=== PATIENT | female | born 1950 | race Caucasian/White ===

== ENCOUNTER 2023-12-09 13:12 | Emergency (ER) | payer MEDICARE, OTHER, SELFPAY ==
[2023-12-09 13:26] VITALS: BP 140/71
[2023-12-09 13:44] LABS: % Basophils 0.3 % (0-2); % Eosinophils 1.1 % (0-6); % Immature Granulocytes 0.3 % (0-0.5); % Lymphocytes 12.9 % (20.5-51.1); % Monocytes 6.6 % (1.7-9.3); % Neutrophils 78.8 % (42.2-75.2); Absolute Eosinophils 0.1 10^3/uL (0-0.7); Absolute Lymphocytes 0.9 10^3/uL (1.2-3.4); Absolute Monocytes 0.5 10^3/uL (0.1-0.6); Absolute Neutrophils 5.5 10^3/uL (1.4-6.5); Hematocrit 37.5 % (37.0-47.0); Hemoglobin 12.3 g/dL (12.0-16.0); Mean Corp Hgb Conc. 32.8 g/dL (33.0-37.0); Mean Corpuscular Hgb 30.7 pg (27.0-31.0); Mean Corpuscular Volume 93.5 fL (81.0-99.0); Nucleated Red Blood Cells % 0 %; Platelet Count 226 10^3/uL (130-400); Red Blood Cell Count 4.01 10^6/uL (4.20-5.40); Red Cell Dist. Width 15.1 % (11.5-14.5)
[2023-12-09 14:00] LABS: ALT (SGPT) 18 U/L (0-35); AST (SGOT) 24 U/L (14-36); Albumin 4.1 g/dl (3.5-5.0); Alkaline Phosphatase 85 U/L (38-126); Blood Urea Nitrogen 13 mg/dl (7-17); Carbon Dioxide 27 mmol/L (22-30); Chloride 103 mmol/L (98-107); Glucose 98 mg/dl (70-99); Sodium 134 mmol/L (135-145); Total Bilirubin 0.6 mg/dl (0.2-1.3); Total Protein 6.1 g/dl (6.3-8.2); eGFR > 60.00
--- NOTE | 2023-12-09 14:04 | ED.GENMED ---
History of Present Illness
<Skyla Patel PA-C - Last Filed: 12/09/23 18:31>
General
Chief Complaint: Jaw Pain
Source: patient
Exam Limitations: none
Time Seen by Provider: 12/09/23 14:02
Nursing documentation reviewed up to this point in time: agreed with
Travel History
Have you had any contact with someone who has COVID-19?: No
Do you have any symptoms of coronavirus? Fever > 100 degrees, chills, cough, shortness of breath, sore throat, loss of taste or smell, muscle aches, or headache?: No
History of Present Illness
History of Present Illness:
This is 73-year-old female with past medical history of myelodysplasia, hyperlipidemia, thyroidism is presenting today with jaw pain. She states that this started when she woke up this morning. She states that the pain is intermittent and is not
aggravated by range of motion of the jaw. She did take Tylenol this morning which did not help the pain. She did see her dentist this past week for regular checkup and she said that everything was normal. She does admit to some occasional
shortness of breath but this she states is chronic for her. She currently denies chest pain, nausea or vomiting, ear pain, headaches, changes to her vision, fevers or chills, lightheadedness, dizziness, shoulder pain. She denies facial pain, tooth
pain. Denies head trauma, trauma to the jaw. She denies radiation of the pain. She is never had anything like this before. She has no history of ACS, coronary artery disease.
Past History
<Skyla Patel PA-C - Last Filed: 12/09/23 18:31>
Past History
ED Past Medical History: Hypercholesterolemia, Hypothyroidism (Thyroidectomy) and Other (Bone marrow transplant for myelodysplasia in 12/2019, Migraine, Rheumatic fever, )
ED Past Surgical History: Other (Thyroidectomy, Hernia repair, MOH's, Eye lid lift)
Social History
Tobacco: Former smoker
Alcohol: None
Personal: Single
Living: alone ([place])
Review of Systems
<Skyla Patel PA-C - Last Filed: 12/09/23 18:31>
Review of Systems
All Other Systems: ROS reviewed and negative except as documented in HPI and ROS
Phy Exam
<Skyla Patel PA-C - Last Filed: 12/09/23 18:31>
Physical Exam
Physical Exam:
General: Patient is well-appearing in no acute distress
Skin: warm and dry, no rashes or lesions
HEENT: No intraoral lesions, no periodontal no peridontal abscesses or swelling. Patient has full range of motion of TMJ joint, no tenderness to palpation of the joint.
Cardiac: Regular and rhythm, no murmurs
Pulm: normal respiratory effort, lung sounds are clear to auscultation bilaterally
Neuro: Alert and oriented x 3, cranial nerves II through XII intact.
Scores
<Skyla Patel PA-C - Last Filed: 12/09/23 18:31>
Heart Score for Chest Pain Patients
Heart Score for Chest Pain Patients: 3
Heart Score Risk: 2.5% MACE over next 6 weeks
<Nirav Dyer DO - Last Filed: 12/09/23 16:04>
Heart Score for Chest Pain Patients
STEMI patient?: No
History: Slightly or Non-Suspicious
ECG: Normal
Age: >/= 65 years
Risk Factors: 1 or 2 Risk Factors
Troponin: </= Normal Limit
Heart Score for Chest Pain Patients: 3
Heart Score Risk: 2.5% MACE over next 6 weeks
Course
<Skyla Patel PA-C - Last Filed: 12/09/23 18:31>
Orders/Labs/Results
Orders:
Orders
12/09/23 13:27
Electrocardiogram (*1) Urgent
Reason for Study: Chest Pain
EKG- Treatment ONCE
12/09/23 13:33
Complete Blood Count/With Diff Urgent
Comprehensive Metabolic Panel Urgent
Troponin I Urgent
12/09/23 15:48
Troponin I Urgent
12/09/23 16:30
Electrocardiogram (*1) Urgent
Reason for Study: QTc Monitoring
Abnormal Lab Results
12/09/23
13:33
RBC 4.01 L 10^6/uL
(4.20-5.40)
MCHC 32.8 L g/dL
(33.0-37.0)
RDW 15.1 H %
(11.5-14.5)
Absolute Lymphs (auto) 0.9 L 10^3/uL
(1.2-3.4)
Neutrophils % 78.8 H %
(42.2-75.2)
Lymphocytes % 12.9 L %
(20.5-51.1)
Sodium 134 L mmol/L
(135-145)
Creatinine 0.5 L mg/dL
(0.6-1.0)
Total Protein 6.1 L g/dl
(6.3-8.2)
12/09/23 13:33
12/09/23 13:33
Vital Signs
Initial and Last Documented VS:
Initial Vital Signs
Temp Pulse Resp BP Pulse Ox
98.4 F 81 16 140/71 98
12/09/23 13:26 12/09/23 13:26 12/09/23 13:26 12/09/23 13:26 12/09/23 13:26
Last Documented Vital Signs
Temp Pulse Resp BP Pulse Ox
98.5 F 94 16 135/79 99
12/09/23 14:09 12/09/23 14:09 12/09/23 14:09 12/09/23 14:09 12/09/23 14:09
<Nirav Dyer, DO - Last Filed: 12/09/23 16:04>
Orders/Labs/Results
Orders:
Orders
12/09/23 13:27
Electrocardiogram (*1) Urgent
Reason for Study: Chest Pain
EKG- Treatment ONCE
12/09/23 13:33
Complete Blood Count/With Diff Urgent
Comprehensive Metabolic Panel Urgent
Troponin I Urgent
12/09/23 15:48
Troponin I Urgent
12/09/23 16:30
Electrocardiogram (*1) Urgent
Reason for Study: QTc Monitoring
Abnormal Lab Results
12/09/23
13:33
RBC 4.01 L 10^6/uL
(4.20-5.40)
MCHC 32.8 L g/dL
(33.0-37.0)
RDW 15.1 H %
(11.5-14.5)
Absolute Lymphs (auto) 0.9 L 10^3/uL
(1.2-3.4)
Neutrophils % 78.8 H %
(42.2-75.2)
Lymphocytes % 12.9 L %
(20.5-51.1)
Sodium 134 L mmol/L
(135-145)
Creatinine 0.5 L mg/dL
(0.6-1.0)
Total Protein 6.1 L g/dl
(6.3-8.2)
12/09/23 13:33
12/09/23 13:33
Vital Signs
Initial and Last Documented VS:
Initial Vital Signs
Temp Pulse Resp BP Pulse Ox
98.4 F 81 16 140/71 98
12/09/23 13:26 12/09/23 13:26 12/09/23 13:26 12/09/23 13:26 12/09/23 13:26
Last Documented Vital Signs
Temp Pulse Resp BP Pulse Ox
98.5 F 94 16 135/79 99
12/09/23 14:09 12/09/23 14:09 12/09/23 14:09 12/09/23 14:09 12/09/23 14:09
<Skyla Patel PA-C - Last Filed: 12/09/23 18:31>
MDM/Problems Addressed
Differential Diagnosis Includes:
Differentials include ACS, TMJ syndrome, trigeminal neuralgia, temporal arteritis, peritonsillar disease
MDM/Problems Addressed:
Jaw pain
Chronic conditions affecting care:
Hypothyroidism, myelodysplasia, hyperlipidemia
Acute Exacerbation and/or Progression of Chronic Illness:
n/a
<Skyla Patel PA-C - Last Filed: 12/09/23 18:31>
*Pulse Oximetry
Patient hypoxic: no
*Critical Care Note
Total Time (30-74mins, 75-104mins- exclusive of procedures): Not Applicable
Data Reviewed
Review of Other/Old Records Reveals: Records (Reviewed previous records, patient was seen here back in October for weakness, she was hospitalized for 3 days, she was found to have hyponatremia possibly secondary to her medications,)
Prescriptions/Medications Considered But Not Given:
n/a
Further Testing Considered But Not Given:
n/a
<Skyla Patel PA-C - Last Filed: 12/09/23 18:31>
Patient Management
Escalation/DeEscalation of care consider admission/obs:
This is a 73-year-old female with a past medical history of myelodysplastic syndrome, hyperlipidemia, hypothyroidism is presenting to emergency department today with jaw pain. Is located on the left side and started around 8 AM upon awakening. She
has no other associate symptoms, no chest pain, no shortness of breath, no dizziness, no lightheadedness. Physical exam is unremarkable. She did not have jaw pain during my visit with her. Her troponin was normal and her EKG showed normal sinus
rhythm. Her CBC and CMP were unremarkable. Her repeat troponin EKG was also normal. We will discharge patient with close follow-up with her PCP and advised return emergency department should she have worsening of her symptoms, chest pain,
shortness of breath, shoulder pain, tractable vomiting, dizziness, or other concerning symptoms
ED Attending Note
<Skyla Patel PA-C - Last Filed: 12/09/23 18:31>
-
Portions of this chart may have been created with voice recognition software.� Occasional wrong word or��sound alike� substitutions may have occurred due to the inherent limitations of voice recognition software.
<Nirav Dyer DO - Last Filed: 12/09/23 16:04>
ED Attending Note
Patient seen and examined by attending physician: Yes
I performed the substantive portion of visit, reviewed & personally made and approve the management plan that is documented in note by myself or VIVIAN.: Yes
I performed a history and physical exam of patient and discussed management with resident, I reviewed resident's note and agree with documented findings and plan of care.: Yes
ED Attending Note:
I have reviewed and agree with history and treatment plan by Skyla Patel. EKG normal. No signs of infection or jaw dislocation. Initial troponin negative. Patient now pain-free. Doubt ACS. Will repeat troponin and EKG. If negative,
patient can be discharged home.
Discharge Plan
Departure
Patient Disposition: Home (Routine Discharge)
Date of Disposition: 12/09/23
Time of Disposition: 16:57
Patient with high blood pressure during this ER visit?: Yes
Condition: Good
Discharge Problem:
Jaw pain
Instructions: Temporomandibular joint (TMJ) disorders, Bruxism (DC), BLOOD PRESSURE
Prescriptions:
No Action
cyanocobalamin (vitamin B-12) 1,000 MCG tablet
500 mcg PO DAILY
valacyclovir 500 MG tablet
500 mg PO BID
sulfamethoxazole-trimethoprim [Bactrim DS] 800-160 mg Tablet
1 tab PO MOWEFR
magnesium gluconate 30 mg (550 mg) Tablet
133 mg PO DAILY
montelukast 10 MG tablet
10 mg PO DAILY
fluticasone propionate 1 SPRAY spray,suspension
2 spray intranasal DAILYPRN PRN (Reason: ALLERGIES)
senna 8.6 MG capsule
8.6 mg PO BID
cholecalciferol (vitamin D3) [Vitamin D3] 25 mcg (1,000 unit) Tablet
25 mcg PO BID
PreserVision AREDS-2 1 EACH capsule
1 ea PO BID
Milk Digestant
2 tab PO DAILY
levothyroxine [Synthroid] 175 mcg Tablet
175 mcg PO MOTUWETHFRSA
acetaminophen [Tylenol] 325 mg Tablet
650 mg PO Q4HPRN PRN (Reason: MILD PAIN)
simethicone [Gas-X Extra Strength] 125 mg Capsule
250 mg PO BID
fexofenadine 180 mg Tablet
180 mg PO DAILY
lorazepam 0.5 mg Tablet
0.25 mg PO DAILY
karthikeyan extract 250 mg Capsule
100 mg PO DAILY
calcium carbonate-vitamin D3 [Calcium 600 + D(3)] 600 mg-10 mcg (400 unit) Tablet
2 tab PO DAILY
meclizine 25 mg Tablet
25 mg PO TIDPRN PRN (Reason: dizziness) Qty: 20 0RF
Referrals:
Pranav Sanchez MD [Family Provider] -
Activity Restrictions/Additional Instructions:
Please follow-up with your primary care provider.
Please use Tylenol as needed for pain control.
Please return to the emergency department should you experience worsening of your symptoms, chest pain, shortness of breath, shoulder pain, back pain, intractable vomiting, dizziness, lightheadedness, or other concerning symptoms.
Interventions
Interventions:
*Risk Screen - Suicide Last Done: 12/09/23 14:06
*General Assessment Last Done: 12/09/23 14:06
*Neglect/Abuse Screening Last Done: 12/09/23 14:06
ED- Fall Risk Assessment Last Done: 12/09/23 14:06
*ED COVID-19 Vaccine History Last Done: 12/09/23 14:06
*Nursing Disposition Last Done: 12/09/23 16:59
ED-EENT Assessment Last Done: 12/09/23 14:06
ED- Cardiac Assessment Last Done: 12/09/23 14:06
Discharge Date and Time
Discharge Date/Time: 12/09/23 17:00
[2023-12-09 14:06] VITALS: BMI 22.9
[2023-12-09 14:09] VITALS: BP 135/79
[2023-12-09 14:10] LABS: Troponin I < 0.012 ng/ml
--- NOTE | 2023-12-09 14:44 | EDRN ---
the pt was placed on portable site monitor in [address], the pt is NSR in the 80's, no c/o chest pain or jaw pain currently, Sp02 100%, no c/o SOB, will continue to monitor the pt closely
[2023-12-09 16:27] LABS: Troponin I < 0.012 ng/ml
== END 2023-12-09 17:00 | disposition home or self-care (01) ==
LOC: EMR 13:12
PROVIDERS: Emergency Medicine; Physician Assistant; EMERGENCY PHYSICIAN Emergency Medicine; FAMILY PHYSICIAN Internal Medicine Geriatric Medicine
DX: R68.84 Jaw pain (principal); Z87.891 Personal history of nicotine dependence; R03.0 Elevated blood-pressure reading, without diagnosis of hypertension; E03.9 Hypothyroidism, unspecified; E78.00 Pure hypercholesterolemia, unspecified; D46.9 Myelodysplastic syndrome, unspecified
CPT/HCPCS: 99284; 80053; 84484; 85025; 93005

== ENCOUNTER → 2023-12-20 07:29 | Outpatient (REF) | payer MEDICARE, OTHER, SELFPAY | LOC: EMG 07:29 | PROVIDERS: ATTENDING PHYSICIAN Psychiatry & Neurology Neurology; FAMILY PHYSICIAN Internal Medicine Geriatric Medicine | DX: R20.0 Anesthesia of skin (principal); G62.0 Drug-induced polyneuropathy | CPT/HCPCS: 95886; 95913 ==

== ENCOUNTER 2024-01-11 13:47 | Outpatient (RCR) | payer MEDICARE, OTHER, SELFPAY | END 2024-01-11 23:59 | disposition home or self-care (01) | LOC: ROT 13:47 | PROVIDERS: ATTENDING PHYSICIAN Psychiatry & Neurology Neurology; FAMILY PHYSICIAN Internal Medicine Geriatric Medicine | DX: R41.89 Other symptoms and signs involving cognitive functions and awareness (principal); Z73.6 Limitation of activities due to disability | CPT/HCPCS: 96125; 97129; 97130; 97167; 97530; 97535 ==

== ENCOUNTER 2024-01-26 15:03 | Outpatient (RCR) | payer MEDICARE, OTHER, SELFPAY | END 2024-01-26 23:59 | disposition home or self-care (01) | LOC: ROT 15:03 | PROVIDERS: ATTENDING PHYSICIAN Psychiatry & Neurology Neurology; FAMILY PHYSICIAN Internal Medicine Geriatric Medicine | DX: R41.89 Other symptoms and signs involving cognitive functions and awareness (principal); Z73.6 Limitation of activities due to disability | CPT/HCPCS: 97110; 97129; 97130; 97530; 97535 ==

== ENCOUNTER 2024-02-02 18:10 | Emergency (ER) | payer MEDICARE, OTHER, SELFPAY ==
[2024-02-02 18:13] VITALS: BP 148/73; BMI 23.7
[2024-02-02 18:26] LABS: % Basophils 0.3 % (0-2); % Eosinophils 2.3 % (0-6); % Immature Granulocytes 0.2 % (0-0.5); % Lymphocytes 22.4 % (20.5-51.1); % Monocytes 8.4 % (1.7-9.3); % Neutrophils 66.4 % (42.2-75.2); Absolute Eosinophils 0.2 10^3/uL (0-0.7); Absolute Lymphocytes 1.5 10^3/uL (1.2-3.4); Absolute Monocytes 0.6 10^3/uL (0.1-0.6); Absolute Neutrophils 4.4 10^3/uL (1.4-6.5); Hematocrit 39.2 % (37.0-47.0); Hemoglobin 12.9 g/dL (12.0-16.0); Mean Corp Hgb Conc. 32.9 g/dL (33.0-37.0); Mean Corpuscular Hgb 30.3 pg (27.0-31.0); Mean Platelet Volume 8.7 fL (7.4-10.4); Nucleated Red Blood Cells % 0 %; Platelet Count 220 10^3/uL (130-400); Red Blood Cell Count 4.26 10^6/uL (4.20-5.40); Red Cell Dist. Width 15.9 % (11.5-14.5); White Blood Cell Count 6.6 10^3/uL (4.8-10.8)
[2024-02-02 18:42] LABS: ALT (SGPT) 18 U/L (0-35); AST (SGOT) 25 U/L (14-36); Albumin 4.6 g/dl (3.5-5.0); Alkaline Phosphatase 77 U/L (38-126); Blood Urea Nitrogen 16 mg/dl (7-17); Calcium 9.9 mg/dl (8.4-10.2); Carbon Dioxide 27 mmol/L (22-30); Chloride 101 mmol/L (98-107); Estimated Creatinine Clearance 76 ml/min; Glucose 114 mg/dl (70-99); Potassium 3.9 mmol/L (3.5-5.1); Sodium 137 mmol/L (135-145); Total Bilirubin 0.5 mg/dl (0.2-1.3); Total Protein 6.8 g/dl (6.3-8.2); eGFR > 60.00
--- NOTE | 2024-02-02 18:45 | ED.GENMED ---
History of Present Illness
General
Chief Complaint: Chest Pain
Time Seen by Provider: 02/02/24 18:17
Travel History
Have you had any contact with someone who has COVID-19?: No
Do you have any symptoms of coronavirus? Fever > 100 degrees, chills, cough, shortness of breath, sore throat, loss of taste or smell, muscle aches, or headache?: No
History of Present Illness
History of Present Illness:
HPI: At about 2 PM today, the patient had relatively abrupt onset pain underneath the left breast. She initially thought this was related to bra discomfort so she removed the bra and the symptoms resolved however symptoms later recurred. Since
that time she was having intermittent episodes. Overall the frequency has been decreasing and she currently has no pain over the last hour or so. She never had any shortness of breath. She is known to Dr. Ortiz. She is supposed to have a cardiac
monitor starting tomorrow.
EXAM:
GENERAL: Well appearing in no distress
HEENT: Moist oral mucosa
CARDIOVASCULAR: No murmurs, normal heart rate, regular rhythm, No chest wall tenderness
PULMONARY: No respiratory distress, breath sounds are clear and equal
ABDOMEN: Soft with no peritoneal signs, no tenderness
NEUROLOGIC: Excellent strength all extremities, no coordination deficits
PSYCHIATRIC: Appropriate mental status, normal insight and judgement
EXTREMITIES: Nontender, no edema, moves all extremities equally
SKIN: No rash, no lesions there is no evidence of shingles on the left side of the chest
TIME OF INITIAL ENCOUNTER: 6:40 PM
NUMBER AND COMPLEXITY OF PROBLEMS ADDRESSED AT THE ENCOUNTER
� Chronic conditions affecting care: Migraine, hypothyroidism, skin cancer
� Acute Exacerbation and/or Progression of Chronic Illness: This is an acute but recurring problem�has had similar but less severe episodes in the past
� Differential Diagnosis includes: Shingles, chest wall pain, stress/anxiety, ACS
AMOUNT AND/OR COMPLEXITY OF DATA TO BE REVIEWED AND ANALYZED
� I performed an independent evaluation of and my interpretation is:
EKG: Sinus 75, normal axis, QTc is normal, no acute ST abnormality
CT:
X-rays:
Laboratory Studies: CBC normal, chemistries unremarkable, troponin negative
Other:
� Review of other/old records: I reviewed OT notes from earlier this year�there for vestibular therapy
� Clinical information was obtained by an independent historian: I spoke to cousins at bedside
� Prescriptions/Medications Considered but not given:
� Further testing considered but not performed:
RISK OF COMPLICATIONS AND/OR MORBIDITY OR MORTALITY OF PATIENT MANAGEMENT
� Social determinants of health affecting care: Lives at [facility]
� Discussion with other providers:
� Escalation of care including admission/observation vs risk of discharge considered: The patient's pain has spontaneously resolved. EKG is unremarkable. The patient is known to Dr. HUGO [facility] chest pain hotline
follow-up. She has remained symptom-free since I saw her initially in the ED. No further symptoms on reassessment at 7 PM.
Past History
Past History
ED Past Medical History: Hypercholesterolemia, Hypothyroidism (Thyroidectomy) and Other (Bone marrow transplant for myelodysplasia in 12/2019, Migraine, Rheumatic fever, )
ED Past Surgical History: Other (Thyroidectomy, Hernia repair, MOH's, Eye lid lift)
Social History
Tobacco: Former smoker
Alcohol: None
Personal: Single
Living: alone ([facility])
Phy Exam
Physical Exam
Physical Exam:
See HPI
Scores
Heart Score for Chest Pain Patients
STEMI patient?: Not applicable
Course
Orders/Labs/Results
Orders:
Orders
02/02/24 18:12
Electrocardiogram (*1) Urgent
Reason for Study: Chest Pain
Cardiac Monitoring- Treatment ONCE
EKG- Treatment ONCE
IV Insert/Care/Rem.- Treatment PRN
O2 Therapy [RESP] Urgent
Titrate/Wean O2 to maintain O2 sat greater than (%): 90
Special Instructions: Maintain sats >/=90%
Pulse Ox/spot Check [RESP] Urgent
Quantity: 1
Special Instructions: ON ROOM AIR
02/02/24 18:15
Complete Blood Count/With Diff Urgent
Comprehensive Metabolic Panel Urgent
Troponin I Urgent
Abnormal Lab Results
02/02/24
18:15
MCHC 32.9 L g/dL
(33.0-37.0)
RDW 15.9 H %
(11.5-14.5)
Glucose 114 H mg/dl
(70-99)
02/02/24 18:15
02/02/24 18:15
Vital Signs
Initial and Last Documented VS:
Initial Vital Signs
Temp Pulse Resp BP Pulse Ox
97.8 F 79 16 148/73 99
02/02/24 18:13 02/02/24 18:13 02/02/24 18:13 02/02/24 18:13 02/02/24 18:13
Last Documented Vital Signs
Temp Pulse Resp BP Pulse Ox
97.8 F 79 16 148/73 99
02/02/24 18:13 02/02/24 18:13 02/02/24 18:13 02/02/24 18:13 02/02/24 18:13
*Critical Care Note
Total Time (30-74mins, 75-104mins- exclusive of procedures): Not Applicable
ED Attending Note
-
Portions of this chart may have been created with voice recognition software.� Occasional wrong word or��sound alike� substitutions may have occurred due to the inherent limitations of voice recognition software.
Discharge Plan
Departure
Patient Disposition: Home (Routine Discharge)
Date of Disposition: 02/02/24
Time of Disposition: 18:52
Patient with high blood pressure during this ER visit?: Yes
Discharge Problem:
Chest pain
Instructions: Chest Pain DCA Follow Up
Prescriptions:
No Action
cyanocobalamin (vitamin B-12) 1,000 MCG tablet
500 mcg PO DAILY
valacyclovir 500 MG tablet
500 mg PO BID
sulfamethoxazole-trimethoprim [Bactrim DS] 800-160 mg Tablet
1 tab PO MOWEFR
magnesium gluconate 30 mg (550 mg) Tablet
133 mg PO DAILY
montelukast 10 MG tablet
10 mg PO DAILY
fluticasone propionate 1 SPRAY spray,suspension
2 spray intranasal DAILYPRN PRN (Reason: ALLERGIES)
senna 8.6 MG capsule
8.6 mg PO BID
cholecalciferol (vitamin D3) [Vitamin D3] 25 mcg (1,000 unit) Tablet
25 mcg PO BID
PreserVision AREDS-2 1 EACH capsule
1 ea PO BID
Milk Digestant
2 tab PO DAILY
levothyroxine [Synthroid] 175 mcg Tablet
175 mcg PO MOTUWETHFRSA
acetaminophen [Tylenol] 325 mg Tablet
650 mg PO Q4HPRN PRN (Reason: MILD PAIN)
simethicone [Gas-X Extra Strength] 125 mg Capsule
250 mg PO BID
fexofenadine 180 mg Tablet
180 mg PO DAILY
lorazepam 0.5 mg Tablet
0.25 mg PO DAILY
karthikeyan extract 250 mg Capsule
100 mg PO DAILY
calcium carbonate-vitamin D3 [Calcium 600 + D(3)] 600 mg-10 mcg (400 unit) Tablet
2 tab PO DAILY
meclizine 25 mg Tablet
25 mg PO TIDPRN PRN (Reason: dizziness) Qty: 20 0RF
Referrals:
Brian Ortiz MD [Active] - Follow up in 2-3 days
Activity Restrictions/Additional Instructions:
I recommend that you follow-up with Dr. Otero have notified their office and they should be calling you to arrange close follow-up. Your EKG and cardiac blood work are normal. Return here if worse.
Interventions
Interventions:
*General Assessment Last Done: 02/02/24 18:13
*Neglect/Abuse Screening Last Done: 02/02/24 18:13
ED- Fall Risk Assessment Last Done: 02/02/24 18:41
*ED COVID-19 Vaccine History Last Done: 02/02/24 18:13
ED- Cardiac Assessment Last Done: 02/02/24 18:41
[2024-02-02 18:50] LABS: Troponin I < 0.012 ng/ml
== END 2024-02-02 19:33 | disposition home or self-care (01) ==
LOC: EMR 18:10
PROVIDERS: EMERGENCY PHYSICIAN Emergency Medicine; FAMILY PHYSICIAN Internal Medicine Geriatric Medicine
DX: R07.89 Other chest pain (principal); E78.00 Pure hypercholesterolemia, unspecified; E03.9 Hypothyroidism, unspecified; Z87.891 Personal history of nicotine dependence
CPT/HCPCS: 99283; 80053; 84484; 85025; 93005

== ENCOUNTER → 2024-02-15 08:02 | Outpatient (REF) | payer MEDICARE, OTHER, SELFPAY ==
[2024-02-15 09:19] LABS: % Basophils 0.3 % (0-2); % Eosinophils 3.3 % (0-6); % Immature Granulocytes 0.5 % (0-0.5); % Lymphocytes 18.4 % (20.5-51.1); % Monocytes 8.6 % (1.7-9.3); % Neutrophils 68.9 % (42.2-75.2); Absolute Eosinophils 0.2 10^3/uL (0-0.7); Absolute Lymphocytes 1.1 10^3/uL (1.2-3.4); Absolute Monocytes 0.5 10^3/uL (0.1-0.6); Hematocrit 38.6 % (37.0-47.0); Hemoglobin 12.4 g/dL (12.0-16.0); Mean Corp Hgb Conc. 32.1 g/dL (33.0-37.0); Mean Corpuscular Hgb 30.3 pg (27.0-31.0); Mean Corpuscular Volume 94.4 fL (81.0-99.0); Mean Platelet Volume 8.9 fL (7.4-10.4); Nucleated Red Blood Cells % 0 %; Platelet Count 196 10^3/uL (130-400); Red Blood Cell Count 4.09 10^6/uL (4.20-5.40); Red Cell Dist. Width 15.9 % (11.5-14.5); White Blood Cell Count 5.8 10^3/uL (4.8-10.8)
== END ==
LOC: REG 08:02
PROVIDERS: ATTENDING PHYSICIAN Internal Medicine Hematology & Oncology; FAMILY PHYSICIAN Internal Medicine Geriatric Medicine
DX: Z85.6 Personal history of leukemia (principal)
CPT/HCPCS: 36415; 85025

== ENCOUNTER → 2024-02-24 09:08 | Outpatient (REF) | payer MEDICARE, OTHER, SELFPAY ==
[2024-02-25 15:37] LABS: CD4 % of Cells Analyzed 17 % (35-68); CD4 Absolute Count 182 cells/uL (490-1600)
== END ==
LOC: REG 09:08
PROVIDERS: ATTENDING PHYSICIAN Nurse Practitioner Primary Care; FAMILY PHYSICIAN Internal Medicine Geriatric Medicine
DX: Z85.6 Personal history of leukemia (principal)
CPT/HCPCS: 36415; 86361

== ENCOUNTER → 2024-02-29 09:10 | Outpatient (REF) | payer MEDICARE, OTHER, SELFPAY | LOC: WDC 09:10 | PROVIDERS: ATTENDING PHYSICIAN Nurse Practitioner Adult Health; FAMILY PHYSICIAN Internal Medicine Geriatric Medicine | DX: N64.4 Mastodynia (principal) | CPT/HCPCS: 76642; 77062; 77066 ==

== ENCOUNTER → 2024-03-09 | Outpatient (REF) | payer MEDICARE, OTHER, SELFPAY | LOC: DHSLP | PROVIDERS: ATTENDING PHYSICIAN Internal Medicine; FAMILY PHYSICIAN Internal Medicine Geriatric Medicine | DX: G47.30 Sleep apnea, unspecified (principal); R06.83 Snoring | CPT/HCPCS: 95800 ==

== ENCOUNTER → 2024-05-30 10:55 | Outpatient (REF) | payer MEDICARE, OTHER, SELFPAY ==
[2024-05-30 14:21] LABS: % Basophils 0.2 % (0-2); % Eosinophils 2.8 % (0-6); % Immature Granulocytes 0.4 % (0-0.5); % Lymphocytes 18.2 % (20.5-51.1); % Monocytes 8.1 % (1.7-9.3); % Neutrophils 70.3 % (42.2-75.2); Absolute Eosinophils 0.2 10^3/uL (0-0.7); Absolute Monocytes 0.5 10^3/uL (0.1-0.6); Hematocrit 35.6 % (37.0-47.0); Mean Corp Hgb Conc. 33.7 g/dL (33.0-37.0); Mean Corpuscular Hgb 31.3 pg (27.0-31.0); Mean Corpuscular Volume 92.7 fL (81.0-99.0); Mean Platelet Volume 9.4 fL (7.4-10.4); Nucleated Red Blood Cells % 0 %; Platelet Count 173 10^3/uL (130-400); Red Blood Cell Count 3.84 10^6/uL (4.20-5.40); White Blood Cell Count 5.7 10^3/uL (4.8-10.8)
[2024-05-30 14:32] LABS: ALT (SGPT) 21 U/L (0-35); AST (SGOT) 24 U/L (14-36); Albumin 3.9 g/dl (3.5-5.0); Alkaline Phosphatase 73 U/L (38-126); Blood Urea Nitrogen 18 mg/dl (7-17); Calcium 9.4 mg/dl (8.4-10.2); Carbon Dioxide 27 mmol/L (22-30); Chloride 105 mmol/L (98-107); Glucose 78 mg/dl (70-99); HDL Cholesterol 49 mg/dl; LDL Cholesterol, Calculated 137 mg/dl; Sodium 138 mmol/L (135-145); Total Bilirubin 0.6 mg/dl (0.2-1.3); Total Cholesterol 212 mg/dl (50-199); Total Protein 5.9 g/dl (6.3-8.2); Triglyceride 132 mg/dl (10-149); Very Low Density Lipoprotein 26 mg/dl (0-30); eGFR > 60.00
[2024-05-30 14:48] LABS: Free T4 1.19 ng/dl (0.78-2.19); Vitamin D, 25-OH*** 51.5 ng/mL (30-80)
[2024-05-30 15:02] LABS: TSH 1.05 uIU/ml (0.47-4.68)
[2024-05-30 15:28] LABS: Erythrocyte Sed Rate 10 mm/hour (0-20)
== END ==
LOC: OLABPV 10:55
PROVIDERS: ATTENDING PHYSICIAN Internal Medicine Geriatric Medicine
DX: Z94.84 Stem cells transplant status (principal); J44.9 Chronic obstructive pulmonary disease, unspecified; E55.9 Vitamin D deficiency, unspecified; D46.9 Myelodysplastic syndrome, unspecified; E87.20 Acidosis, unspecified; G62.9 Polyneuropathy, unspecified; M25.562 Pain in left knee; E89.0 Postprocedural hypothyroidism; Z13.89 Encounter for screening for other disorder; K21.9 Gastro-esophageal reflux disease without esophagitis; T78.40XA Allergy, unspecified, initial encounter; R06.09 Other forms of dyspnea; I73.9 Peripheral vascular disease, unspecified; G45.9 Transient cerebral ischemic attack, unspecified; R68.84 Jaw pain; M54.9 Dorsalgia, unspecified; M54.50 Low back pain, unspecified; Z99.89 Dependence on other enabling machines and devices
CPT/HCPCS: 36415; 80053; 80061; 82306; 84439; 84443; 85025; 85652

== ENCOUNTER → 2024-06-13 16:09 | Outpatient (REF) | payer MEDICARE, OTHER, SELFPAY | LOC: REG 16:09 | PROVIDERS: ATTENDING PHYSICIAN Nurse Practitioner Family | DX: R19.7 Diarrhea, unspecified (principal); D46.9 Myelodysplastic syndrome, unspecified; R19.5 Other fecal abnormalities; K92.1 Melena | CPT/HCPCS: 87045; 87046; 87077; 87324; 87328; 87329; 87427; 87449 ==

== ENCOUNTER → 2024-06-29 10:22 | Outpatient (REF) | payer MEDICARE, OTHER, SELFPAY ==
[2024-06-29 11:44] LABS: % Basophils 0.7 % (0-2); % Immature Granulocytes 0.2 % (0-0.5); % Lymphocytes 21.4 % (20.5-51.1); % Monocytes 7.4 % (1.7-9.3); % Neutrophils 66.3 % (42.2-75.2); Absolute Eosinophils 0.2 10^3/uL (0-0.7); Absolute Lymphocytes 1.2 10^3/uL (1.2-3.4); Absolute Monocytes 0.4 10^3/uL (0.1-0.6); Absolute Neutrophils 3.8 10^3/uL (1.4-6.5); Hematocrit 38.8 % (37.0-47.0); Hemoglobin 12.9 g/dL (12.0-16.0); Mean Corp Hgb Conc. 33.2 g/dL (33.0-37.0); Mean Corpuscular Hgb 31.5 pg (27.0-31.0); Mean Corpuscular Volume 94.9 fL (81.0-99.0); Mean Platelet Volume 9.2 fL (7.4-10.4); Nucleated Red Blood Cells % 0 %; Platelet Count 173 10^3/uL (130-400); Red Blood Cell Count 4.09 10^6/uL (4.20-5.40); Red Cell Dist. Width 15.5 % (11.5-14.5); White Blood Cell Count 5.7 10^3/uL (4.8-10.8)
[2024-06-29 12:11] LABS: Blood Urea Nitrogen 18 mg/dl (7-17); Calcium 9.7 mg/dl (8.4-10.2); Carbon Dioxide 26 mmol/L (22-30); Chloride 103 mmol/L (98-107); Glucose 69 mg/dl (70-99); Potassium 4.3 mmol/L (3.5-5.1); Sodium 137 mmol/L (135-145); eGFR > 60.00
== END ==
LOC: REG 10:22
PROVIDERS: ATTENDING PHYSICIAN Orthopaedic Surgery; FAMILY PHYSICIAN Internal Medicine Geriatric Medicine
DX: Z01.818 Encounter for other preprocedural examination (principal)
CPT/HCPCS: 36415; 80048; 85025

== ENCOUNTER → 2024-08-15 11:30 | Outpatient (REF) | payer MEDICARE, OTHER, SELFPAY ==
[2024-08-15 13:39] LABS: % Basophils 0.7 % (0-2); % Eosinophils 5.3 % (0-6); % Immature Granulocytes 0.2 % (0-0.5); % Lymphocytes 17.3 % (20.5-51.1); % Monocytes 8.4 % (1.7-9.3); % Neutrophils 68.1 % (42.2-75.2); Absolute Eosinophils 0.2 10^3/uL (0-0.7); Absolute Lymphocytes 0.7 10^3/uL (1.2-3.4); Absolute Monocytes 0.4 10^3/uL (0.1-0.6); Absolute Neutrophils 2.8 10^3/uL (1.4-6.5); Hematocrit 30.4 % (37.0-47.0); Hemoglobin 9.9 g/dL (12.0-16.0); Mean Corp Hgb Conc. 32.6 g/dL (33.0-37.0); Mean Corpuscular Hgb 31.6 pg (27.0-31.0); Mean Corpuscular Volume 97.1 fL (81.0-99.0); Mean Platelet Volume 8.6 fL (7.4-10.4); Nucleated Red Blood Cells % 0 %; Platelet Count 229 10^3/uL (130-400); Red Blood Cell Count 3.13 10^6/uL (4.20-5.40); Red Cell Dist. Width 16.4 % (11.5-14.5); White Blood Cell Count 4.2 10^3/uL (4.8-10.8)
[2024-08-15 14:04] LABS: ALT (SGPT) 18 U/L (0-35); AST (SGOT) 22 U/L (14-36); Albumin 3.8 g/dl (3.5-5.0); Alkaline Phosphatase 102 U/L (38-126); Calcium 9.4 mg/dl (8.4-10.2); Carbon Dioxide 28 mmol/L (22-30); Chloride 103 mmol/L (98-107); Glucose 84 mg/dl (70-99); Potassium 4.2 mmol/L (3.5-5.1); Sodium 140 mmol/L (135-145); Total Protein 5.7 g/dl (6.3-8.2)
[2024-08-15 14:14] LABS: Blood Urea Nitrogen 14 mg/dl (7-17); Total Bilirubin 0.5 mg/dl (0.2-1.3); eGFR > 60.00
[2024-08-17 16:53] LABS: CD4 % of Cells Analyzed 20 % (35-68); CD4 Absolute Count 172 cells/uL (490-1600)
== END ==
LOC: OLABPV 11:30
PROVIDERS: ATTENDING PHYSICIAN Nurse Practitioner Primary Care
DX: Z85.6 Personal history of leukemia (principal)
CPT/HCPCS: 36415; 80053; 85025; 86361

== ENCOUNTER → 2024-08-18 07:58 | Outpatient (REF) | payer MEDICARE, OTHER, SELFPAY ==
[2024-08-18 08:48] LABS: % Basophils 0.6 % (0-2); % Eosinophils 4.8 % (0-6); % Immature Granulocytes 0.4 % (0-0.5); % Lymphocytes 18.5 % (20.5-51.1); % Monocytes 10.6 % (1.7-9.3); % Neutrophils 65.1 % (42.2-75.2); Absolute Eosinophils 0.3 10^3/uL (0-0.7); Absolute Monocytes 0.6 10^3/uL (0.1-0.6); Absolute Neutrophils 3.4 10^3/uL (1.4-6.5); Hematocrit 33.6 % (37.0-47.0); Hemoglobin 10.7 g/dL (12.0-16.0); Mean Corp Hgb Conc. 31.8 g/dL (33.0-37.0); Mean Corpuscular Hgb 31.5 pg (27.0-31.0); Mean Corpuscular Volume 98.8 fL (81.0-99.0); Mean Platelet Volume 8.5 fL (7.4-10.4); Nucleated Red Blood Cells % 0 %; Platelet Count 222 10^3/uL (130-400); Red Cell Dist. Width 16.4 % (11.5-14.5); Reticulocyte Count 3.1 % (0.4-2.8); White Blood Cell Count 5.2 10^3/uL (4.8-10.8)
[2024-08-18 09:09] LABS: Erythrocyte Sed Rate 17 mm/hour (0-20)
[2024-08-18 09:13] LABS: Iron 39 ug/dl (37-170); LDH 192 U/L (120-246); Phosphorus 3.6 mg/dl (2.5-4.5); Uric Acid 2.8 mg/dl (2.5-6.2)
[2024-08-18 09:21] LABS: Percent Saturation 12 % (20-50); Total Iron Binding Capacity 317 ug/dl (265-497)
[2024-08-18 10:21] LABS: Folate 5.7 ng/ml (2.76-20); Vitamin B12 > 1000 pg/ml (239-931)
[2024-08-19 14:13] LABS: CD4 % of Cells Analyzed 19 % (35-68); CD4 Absolute Count 219 cells/uL (490-1600)
[2024-08-19 23:27] LABS: Haptoglobin 163 mg/dL (30-200)
== END ==
LOC: REG 07:58
PROVIDERS: ATTENDING PHYSICIAN Nurse Practitioner Adult Health; FAMILY PHYSICIAN Internal Medicine Geriatric Medicine
DX: Z85.6 Personal history of leukemia (principal); E87.1 Hypo-osmolality and hyponatremia; D51.9 Vitamin B12 deficiency anemia, unspecified
CPT/HCPCS: 36415; 82607; 82728; 82746; 83010; 83540; 83550; 83615; 84100; 84550; 85025; 85045; 85652; 86361; 86880

== ENCOUNTER → 2024-09-12 11:15 | Outpatient (REF) | payer MEDICARE, OTHER, SELFPAY ==
[2024-09-12 12:14] LABS: % Basophils 0.7 % (0-2); % Eosinophils 4.3 % (0-6); % Immature Granulocytes 0.2 % (0-0.5); % Lymphocytes 20.9 % (20.5-51.1); % Monocytes 8.2 % (1.7-9.3); % Neutrophils 65.7 % (42.2-75.2); Absolute Eosinophils 0.2 10^3/uL (0-0.7); Absolute Lymphocytes 1.1 10^3/uL (1.2-3.4); Absolute Monocytes 0.4 10^3/uL (0.1-0.6); Absolute Neutrophils 3.5 10^3/uL (1.4-6.5); Hematocrit 34.7 % (37.0-47.0); Hemoglobin 11.1 g/dL (12.0-16.0); Mean Corpuscular Hgb 31.5 pg (27.0-31.0); Mean Corpuscular Volume 98.6 fL (81.0-99.0); Mean Platelet Volume 8.9 fL (7.4-10.4); Nucleated Red Blood Cells % 0 %; Platelet Count 203 10^3/uL (130-400); Red Blood Cell Count 3.52 10^6/uL (4.20-5.40); Red Cell Dist. Width 15.2 % (11.5-14.5); White Blood Cell Count 5.4 10^3/uL (4.8-10.8)
[2024-09-12 13:41] LABS: ALT (SGPT) 14 U/L (0-35); AST (SGOT) 23 U/L (14-36); Albumin 4.1 g/dl (3.5-5.0); Alkaline Phosphatase 81 U/L (38-126); Blood Urea Nitrogen 12 mg/dl (7-17); Calcium 9.6 mg/dl (8.4-10.2); Carbon Dioxide 29 mmol/L (22-30); Chloride 101 mmol/L (98-107); Glucose 80 mg/dl (70-99); HDL Cholesterol 40 mg/dl; LDL Cholesterol, Calculated 137 mg/dl; Potassium 4.5 mmol/L (3.5-5.1); Sodium 140 mmol/L (135-145); Total Bilirubin 0.4 mg/dl (0.2-1.3); Total Cholesterol 209 mg/dl (50-199); Total Protein 6.2 g/dl (6.3-8.2); Triglyceride 162 mg/dl (10-149); Very Low Density Lipoprotein 32 mg/dl (0-30); eGFR > 60.00
== END ==
LOC: OLABPV 11:15
PROVIDERS: ATTENDING PHYSICIAN Internal Medicine Geriatric Medicine
DX: E78.2 Mixed hyperlipidemia (principal); J44.9 Chronic obstructive pulmonary disease, unspecified; E55.9 Vitamin D deficiency, unspecified; D46.9 Myelodysplastic syndrome, unspecified; G62.9 Polyneuropathy, unspecified; M25.562 Pain in left knee; E89.0 Postprocedural hypothyroidism; K21.9 Gastro-esophageal reflux disease without esophagitis; T78.40XA Allergy, unspecified, initial encounter; Z13.89 Encounter for screening for other disorder; R06.09 Other forms of dyspnea; I73.9 Peripheral vascular disease, unspecified; G45.9 Transient cerebral ischemic attack, unspecified; M54.50 Low back pain, unspecified; Z99.89 Dependence on other enabling machines and devices
CPT/HCPCS: 36415; 80053; 80061; 85025

== ENCOUNTER → 2024-10-10 09:52 | Outpatient (REF) | payer MEDICARE, OTHER, SELFPAY ==
[2024-10-10 10:40] LABS: % Basophils 0.7 % (0-2); % Eosinophils 3.2 % (0-6); % Immature Granulocytes 0.2 % (0-0.5); % Lymphocytes 22.1 % (20.5-51.1); % Monocytes 8.3 % (1.7-9.3); % Neutrophils 65.5 % (42.2-75.2); Absolute Eosinophils 0.1 10^3/uL (0-0.7); Absolute Monocytes 0.4 10^3/uL (0.1-0.6); Absolute Neutrophils 2.9 10^3/uL (1.4-6.5); Hematocrit 34.3 % (37.0-47.0); Hemoglobin 11.3 g/dL (12.0-16.0); Mean Corp Hgb Conc. 32.9 g/dL (33.0-37.0); Mean Corpuscular Hgb 31.2 pg (27.0-31.0); Mean Corpuscular Volume 94.8 fL (81.0-99.0); Mean Platelet Volume 9.4 fL (7.4-10.4); Nucleated Red Blood Cells % 0 %; Platelet Count 179 10^3/uL (130-400); Red Blood Cell Count 3.62 10^6/uL (4.20-5.40); Red Cell Dist. Width 14.6 % (11.5-14.5); White Blood Cell Count 4.4 10^3/uL (4.8-10.8)
[2024-10-10 10:53] LABS: ALT (SGPT) 12 U/L (0-35); AST (SGOT) 21 U/L (14-36); Alkaline Phosphatase 60 U/L (38-126); Blood Urea Nitrogen 9 mg/dl (7-17); Calcium 9.4 mg/dl (8.4-10.2); Carbon Dioxide 28 mmol/L (22-30); Chloride 104 mmol/L (98-107); Glucose 84 mg/dl (70-99); HDL Cholesterol 36 mg/dl; LDL Cholesterol, Calculated 118 mg/dl; Potassium 4.2 mmol/L (3.5-5.1); Sodium 140 mmol/L (135-145); Total Bilirubin 0.4 mg/dl (0.2-1.3); Total Cholesterol 180 mg/dl (50-199); Triglyceride 131 mg/dl (10-149); Very Low Density Lipoprotein 26 mg/dl (0-30); eGFR > 60.00
[2024-10-10 10:55] LABS: C-Reactive Protein < 5.00 mg/L (0.0-10.00)
[2024-10-10 11:44] LABS: Erythrocyte Sed Rate 10 mm/hour (0-20)
[2024-10-10 12:14] LABS: Urine Albumin Negative (Neg - Trace); Urine Bilirubin Negative (Negative); Urine Character Clear (Clear); Urine Color Yellow; Urine Glucose Negative (Negative); Urine Ketone Negative (Negative); Urine Leukocyte Negative (Negative); Urine Nitrite Negative (Negative); Urine Occult Blood Negative (Negative); Urine Specific Gravity 1.005 (<1.030); Urine Urobilinogen Negative (Neg - 1+)
== END ==
LOC: OLABPV 09:52
PROVIDERS: ATTENDING PHYSICIAN Internal Medicine Geriatric Medicine
DX: E78.2 Mixed hyperlipidemia (principal); E55.9 Vitamin D deficiency, unspecified; R79.89 Other specified abnormal findings of blood chemistry
CPT/HCPCS: 36415; 80053; 80061; 81003; 85025; 85652; 86140

== ENCOUNTER → 2024-11-01 13:07 | Outpatient (REF) | payer MEDICARE, OTHER, SELFPAY | LOC: RAD 13:07 | PROVIDERS: ATTENDING PHYSICIAN Nurse Practitioner Family; FAMILY PHYSICIAN Internal Medicine Geriatric Medicine | DX: R06.02 Shortness of breath (principal); M54.50 Low back pain, unspecified; M25.551 Pain in right hip; M25.552 Pain in left hip | CPT/HCPCS: 72110; 73523 ==

== ENCOUNTER 2024-11-04 12:20 | Emergency (ER) | payer MEDICARE, OTHER, SELFPAY ==
[2024-11-04 12:21] VITALS: BP 140/80
[2024-11-04 13:32] VITALS: BP 140/59
[2024-11-04 14:00] VITALS: BP 123/65
--- NOTE | 2024-11-04 14:36 | ED.GENMED ---
History of Present Illness
General
Chief Complaint: Breast Problem
Source: patient
Exam Limitations: none
Time Seen by Provider: 11/04/24 14:36
Nursing documentation reviewed up to this point in time: agreed with
History of Present Illness
History of Present Illness:
74-year-old female with a past medical history of migraines, hypertension, hypothyroidism presents emergency department today with concerns of left-sided breast pain. She also feels it in her right breast at times as well. She states that it is
intermittent. She states that it will come and go randomly. She denies any trauma to the chest wall. She is never had a thing like this before. She denies any shortness of breath, states is different than chest pain. She denies any nipple
drainage, denies any fevers or chills, any recent long distance travel, any palpable breast masses. She does note a past surgical history of skin cancer and myelodysplasia.
Past History
Past History
ED Past Medical History: Hypercholesterolemia, Hypothyroidism (Thyroidectomy) and Other (Bone marrow transplant for myelodysplasia in 12/2019, Migraine, Rheumatic fever, )
ED Past Surgical History: Other (Thyroidectomy, Hernia repair, MOH's, Eye lid lift)
Social History
Tobacco: Former smoker
Alcohol: None
Personal: Single
Living: alone ([place])
Review of Systems
Review of Systems
All Other Systems: ROS reviewed and negative except as documented in HPI and ROS
Phy Exam
Physical Exam
Physical Exam:
General: Patient is well appearing and in no acute distress; non-toxic
Skin: Warm and dry, no rashes or lesions
Head: Normocephalic, atraumatic
Eyes: Sclera non-icteric. EOMs intact.
Cardiac: Regular rate and rhythm, no murmus
Breast: No lymphadenopathy or palpable breast masses bilaterally, no nipple drainage.
Pulm: Normal respiratory effort, no wheezes, rales, or rhonchi
Abdomen: No abdominal tenderness
Musculoskeletal: Tenderness to palpation of the external chest wall
Neuro: CN II-XII intact, no focal neurologic deficits.
Psychiatric: Appropriate mood and affect.
Course
Orders/Labs/Results
Orders:
Orders
11/04/24 12:25
Electrocardiogram (*1) Urgent
Reason for Study: Chest Pain
EKG- Treatment ONCE
11/04/24 14:56
CR Chest - 2 Views Urgent
Comment:
Reason For Exam: left chest wall pain
11/04/24 15:00
Complete Blood Count/With Diff Urgent
Comprehensive Metabolic Panel Urgent
D-Dimer Urgent
Troponin I Urgent
Abnormal Lab Results
11/04/24
15:00
RBC 4.09 L 10^6/uL
(4.20-5.40)
MCHC 32.0 L g/dL
(33.0-37.0)
RDW 15.0 H %
(11.5-14.5)
D-Dimer 0.55 H ug/mlFEU
(0.00-0.50)
11/04/24 15:00
11/04/24 15:00
Vital Signs
Initial and Last Documented VS:
Initial Vital Signs
Temp Pulse Resp BP Pulse Ox
98.4 F 98 16 140/80 99
11/04/24 12:21 11/04/24 12:21 11/04/24 12:21 11/04/24 12:21 11/04/24 12:21
Last Documented Vital Signs
Temp Pulse Resp BP Pulse Ox
98.4 F 98 16 145/67 99
11/04/24 12:21 11/04/24 12:21 11/04/24 12:21 11/04/24 16:03 11/04/24 12:21
MDM/Problems Addressed
Differential Diagnosis Includes:
see below
MDM/Problems Addressed:
NUMBER AND COMPLEXITY OF PROBLEMS ADDRESSED AT THE ENCOUNTER
� Chronic conditions affecting care: Migraines, hyperlipidemia, hypothyroidism
� Acute Exacerbation and/or Progression of Chronic Illness:
� Differential Diagnosis includes: Costochondritis, musculoskeletal sprain/strain, hormonal fluctuations, ACS, PE
AMOUNT AND/OR COMPLEXITY OF DATA TO BE REVIEWED AND ANALYZED
� I performed an independent evaluation of and my interpretation is:
EKG: Reviewed EKG, rate of 87 normal sinus rhythm with no ischemic changes
X-rays:
Laboratory Studies:
Other:
� Review of other/old records: Reviewed previous ER physician documentation from 02/02/2024, patient seen for chest pain, she had that onset abruptly underneath the left breast she is known to Dr. Ortiz, she was discharged after unremarkable workup
� Clinical information was obtained by an independent historian: N/A
� Prescriptions/Medications Considered but not given:
� Further testing considered but not performed:
RISK OF COMPLICATIONS AND/OR MORBIDITY OR MORTALITY OF PATIENT MANAGEMENT
� Social determinants of health affecting care: none
� Discussion with other providers: ER attending
� Escalation of care including admission/observation vs risk of discharge considered:
74 y/o female presents to the emergency department with left breast pain/left chest wall pain for the past few days. She is a patient of Dr. Ortiz. She says that she never had anything like this before. Based on my exam, suspect musculoskeletal
sprain/strain. Will send of troponin, d-dimer, CXR will reassess.
D-dimer age adjusted normal. Troponin undetectable. EKG shows no concerning ischemic changes doubt ACS. No signs of breast abscess or infectious process on exam. Patient states she has been lifting weights and physical therapy and has been doing
chest exercises. Considering this and considering pain patient's pain is reproducible on exam, I do suspect a musculoskeletal etiology to patient's symptoms. Patient stable for discharge, discussed potential follow-up with cardiology or potential
follow-up with IRRIGATION SYSTEM INSTALLER to get a breast ultrasound. Patient stable for discharge
*Pulse Oximetry
Patient hypoxic: no
*Critical Care Note
Total Time (30-74mins, 75-104mins- exclusive of procedures): Not Applicable
ED Attending Note
-
Portions of this chart may have been created with voice recognition software.� Occasional wrong word or��sound alike� substitutions may have occurred due to the inherent limitations of voice recognition software.
Discharge Plan
Departure
Patient Disposition: Home (Routine Discharge)
Date of Disposition: 11/04/24
Time of Disposition: 16:22
Patient with high blood pressure during this ER visit?: Yes
Condition: Good
Discharge Problem:
Breast pain, left
Instructions: Mastalgia, BLOOD PRESSURE, Musculoskeletal Pain
Prescriptions:
No Action
cyanocobalamin (vitamin B-12) 1,000 MCG tablet
500 mcg PO DAILY
valacyclovir 500 MG tablet
500 mg PO BID
sulfamethoxazole-trimethoprim [Bactrim DS] 800-160 mg Tablet
1 tab PO MOWEFR
magnesium gluconate 30 mg (550 mg) Tablet
133 mg PO DAILY
montelukast 10 MG tablet
10 mg PO DAILY
fluticasone propionate 1 SPRAY spray,suspension
2 spray intranasal DAILYPRN PRN (Reason: ALLERGIES)
senna 8.6 MG capsule
8.6 mg PO BID
cholecalciferol (vitamin D3) [Vitamin D3] 25 mcg (1,000 unit) Tablet
25 mcg PO BID
PreserVision AREDS-2 1 EACH capsule
1 ea PO BID
Milk Digestant
2 tab PO DAILY
levothyroxine [Synthroid] 175 mcg Tablet
175 mcg PO MOTUWETHFRSA
acetaminophen [Tylenol] 325 mg Tablet
650 mg PO Q4HPRN PRN (Reason: MILD PAIN)
simethicone [Gas-X Extra Strength] 125 mg Capsule
250 mg PO BID
fexofenadine 180 mg Tablet
180 mg PO DAILY
lorazepam 0.5 mg Tablet
0.25 mg PO DAILY
karthikeyan extract 250 mg Capsule
100 mg PO DAILY
calcium carbonate-vitamin D3 [Calcium 600 + D(3)] 600 mg-10 mcg (400 unit) Tablet
2 tab PO DAILY
meclizine 25 mg Tablet
25 mg PO TIDPRN PRN (Reason: dizziness) Qty: 20 0RF
Referrals:
Pranav Sanchez MD [Family Provider] -
Activity Restrictions/Additional Instructions:
Please return to the emergency department should you develop chest pain, shortness of breath, dizziness, lightheadedness, nausea, vomiting, fevers or chills, left jaw pain, left upper extremity pain, any other signs or symptoms concerning to you.
Please follow up with your IRRIGATION SYSTEM INSTALLER and your childhood development teacher.
Interventions
Interventions:
*Risk Screen - Suicide Last Done: 11/04/24 12:21
*General Assessment Last Done: 11/04/24 12:21
*Neglect/Abuse Screening Last Done: 11/04/24 12:21
*ED COVID-19 Vaccine History Last Done: 11/04/24 12:21
*Nursing Disposition Last Done: 11/04/24 16:42
ED-Skin Assessment Last Done: 11/04/24 15:01
Discharge Date and Time
Discharge Date/Time: 11/04/24 16:43
Print Language: UPPER SORBIAN
[2024-11-04 15:00] VITALS: BP 129/76
[2024-11-04 15:18] LABS: % Basophils 0.5 % (0-2); % Eosinophils 1.5 % (0-6); % Immature Granulocytes 0.2 % (0-0.5); % Lymphocytes 21.3 % (20.5-51.1); % Monocytes 7.5 % (1.7-9.3); Absolute Eosinophils 0.1 10^3/uL (0-0.7); Absolute Lymphocytes 1.3 10^3/uL (1.2-3.4); Absolute Monocytes 0.5 10^3/uL (0.1-0.6); Absolute Neutrophils 4.2 10^3/uL (1.4-6.5); Hematocrit 38.8 % (37.0-47.0); Hemoglobin 12.4 g/dL (12.0-16.0); Mean Corpuscular Hgb 30.3 pg (27.0-31.0); Mean Corpuscular Volume 94.9 fL (81.0-99.0); Nucleated Red Blood Cells % 0 %; Platelet Count 202 10^3/uL (130-400); Red Blood Cell Count 4.09 10^6/uL (4.20-5.40)
[2024-11-04 15:28] LABS: D-Dimer 0.55 ug/mlFEU (0.00-0.50)
[2024-11-04 15:33] LABS: ALT (SGPT) 18 U/L (0-35); AST (SGOT) 24 U/L (14-36); Albumin 4.3 g/dl (3.5-5.0); Alkaline Phosphatase 72 U/L (38-126); Blood Urea Nitrogen 17 mg/dl (7-17); Calcium 9.8 mg/dl (8.4-10.2); Carbon Dioxide 30 mmol/L (22-30); Chloride 101 mmol/L (98-107); Glucose 97 mg/dl (70-99); Potassium 4.2 mmol/L (3.5-5.1); Sodium 136 mmol/L (135-145); Total Bilirubin 0.3 mg/dl (0.2-1.3); Total Protein 6.3 g/dl (6.3-8.2); eGFR > 60.00
[2024-11-04 15:43] LABS: Troponin I < 0.012 ng/ml
[2024-11-04 16:03] VITALS: BP 145/67
== END 2024-11-04 16:43 | disposition home or self-care (01) ==
LOC: EMR 12:20
PROVIDERS: Physician Assistant; EMERGENCY PHYSICIAN Emergency Medicine; FAMILY PHYSICIAN Internal Medicine Geriatric Medicine
DX: N64.4 Mastodynia (principal); E03.9 Hypothyroidism, unspecified; E78.00 Pure hypercholesterolemia, unspecified; I10 Essential (primary) hypertension; Z94.81 Bone marrow transplant status; Z87.891 Personal history of nicotine dependence
CPT/HCPCS: 99285; 71046; 80053; 84484; 85025; 85379; 93005

== ENCOUNTER → 2024-11-06 15:23 | Outpatient (REF) | payer MEDICARE, OTHER, SELFPAY | LOC: RCS 15:23 | PROVIDERS: ATTENDING PHYSICIAN Nurse Practitioner Family | DX: R06.02 Shortness of breath (principal); R53.83 Other fatigue | CPT/HCPCS: 93306 ==

== ENCOUNTER → 2024-11-16 09:38 | Outpatient (REF) | payer MEDICARE, OTHER, SELFPAY ==
[2024-11-16 10:22] LABS: % Basophils 0.5 % (0-2); % Eosinophils 3.2 % (0-6); % Immature Granulocytes 0.2 % (0-0.5); % Lymphocytes 20.7 % (20.5-51.1); % Neutrophils 68.4 % (42.2-75.2); Absolute Eosinophils 0.1 10^3/uL (0-0.7); Absolute Lymphocytes 0.9 10^3/uL (1.2-3.4); Absolute Monocytes 0.3 10^3/uL (0.1-0.6); Hematocrit 38.1 % (37.0-47.0); Mean Corp Hgb Conc. 31.5 g/dL (33.0-37.0); Mean Corpuscular Hgb 29.9 pg (27.0-31.0); Mean Corpuscular Volume 94.8 fL (81.0-99.0); Mean Platelet Volume 8.8 fL (7.4-10.4); Nucleated Red Blood Cells % 0 %; Platelet Count 194 10^3/uL (130-400); Red Blood Cell Count 4.02 10^6/uL (4.20-5.40); Red Cell Dist. Width 15.8 % (11.5-14.5); White Blood Cell Count 4.4 10^3/uL (4.8-10.8)
[2024-11-16 12:23] LABS: Iron 80 ug/dl (37-170)
[2024-11-16 12:32] LABS: Percent Saturation 23 % (20-50); Total Iron Binding Capacity 334 ug/dl (265-497)
[2024-11-16 16:30] LABS: Free T4 1.36 ng/dl (0.78-2.19)
[2024-11-16 16:48] LABS: Ferritin 30.6 ng/ml (11.1-264.0)
[2024-11-18 15:17] LABS: CD4 % of Cells Analyzed 21 % (35-68); CD4 Absolute Count 236 cells/uL
== END ==
LOC: REG 09:38
PROVIDERS: ATTENDING PHYSICIAN Internal Medicine Hematology & Oncology
DX: Z85.6 Personal history of leukemia (principal); D50.9 Iron deficiency anemia, unspecified; R94.6 Abnormal results of thyroid function studies
CPT/HCPCS: 36415; 82728; 83540; 83550; 84439; 84443; 85025; 86361

== ENCOUNTER → 2024-12-26 09:55 | Outpatient (REF) | payer MEDICARE, OTHER, SELFPAY ==
[2024-12-26 10:47] LABS: % Basophils 0.6 % (0-2); % Immature Granulocytes 0.2 % (0-0.5); % Lymphocytes 21.4 % (20.5-51.1); % Monocytes 8.9 % (1.7-9.3); % Neutrophils 64.9 % (42.2-75.2); Absolute Eosinophils 0.2 10^3/uL (0-0.7); Absolute Monocytes 0.4 10^3/uL (0.1-0.6); Absolute Neutrophils 3.1 10^3/uL (1.4-6.5); Hematocrit 35.7 % (37.0-47.0); Hemoglobin 11.4 g/dL (12.0-16.0); Mean Corp Hgb Conc. 31.9 g/dL (33.0-37.0); Mean Corpuscular Hgb 31.2 pg (27.0-31.0); Mean Corpuscular Volume 97.8 fL (81.0-99.0); Mean Platelet Volume 9.2 fL (7.4-10.4); Nucleated Red Blood Cells % 0 %; Platelet Count 158 10^3/uL (130-400); Red Blood Cell Count 3.65 10^6/uL (4.20-5.40); Red Cell Dist. Width 15.4 % (11.5-14.5); White Blood Cell Count 4.7 10^3/uL (4.8-10.8)
[2024-12-26 11:10] LABS: Urine Albumin Negative (Neg - Trace); Urine Bilirubin Negative (Negative); Urine Character Cloudy (Clear); Urine Color Yellow; Urine Glucose Negative (Negative); Urine Ketone Negative (Negative); Urine Leukocyte Negative (Negative); Urine Nitrite Negative (Negative); Urine Occult Blood Negative (Negative); Urine Urobilinogen Negative (Neg - 1+); Urine pH 6.5 (5.0-9.0)
[2024-12-26 11:14] LABS: Free T4 1.18 ng/dl (0.78-2.19); Vitamin D, 25-OH*** 55.7 ng/mL (30-80)
[2024-12-26 11:26] LABS: Erythrocyte Sed Rate 8 mm/hour (0-20)
[2024-12-26 11:28] LABS: TSH 1.36 uIU/ml (0.47-4.68)
[2024-12-26 15:51] LABS: ALT (SGPT) 30 U/L (0-35); AST (SGOT) 36 U/L (14-36); Albumin 4.2 g/dl (3.5-5.0); Alkaline Phosphatase 69 U/L (38-126); Blood Urea Nitrogen 14 mg/dl (7-17); Calcium 9.4 mg/dl (8.4-10.2); Carbon Dioxide 27 mmol/L (22-30); Chloride 100 mmol/L (98-107); Glucose 81 mg/dl (70-99); HDL Cholesterol 42 mg/dl; LDL Cholesterol, Calculated 127 mg/dl; Potassium 4.3 mmol/L (3.5-5.1); Sodium 137 mmol/L (135-145); Total Bilirubin 0.7 mg/dl (0.2-1.3); Total Cholesterol 191 mg/dl (50-199); Total Protein 5.9 g/dl (6.3-8.2); Triglyceride 114 mg/dl (10-149); Very Low Density Lipoprotein 22 mg/dl (0-30); eGFR > 60.00
== END ==
LOC: OLABPV 09:55
PROVIDERS: ATTENDING PHYSICIAN Internal Medicine Geriatric Medicine
DX: E78.2 Mixed hyperlipidemia (principal); J44.9 Chronic obstructive pulmonary disease, unspecified; C92.01 Acute myeloblastic leukemia, in remission; Z94.84 Stem cells transplant status; E55.9 Vitamin D deficiency, unspecified; D46.9 Myelodysplastic syndrome, unspecified; G62.9 Polyneuropathy, unspecified; M25.562 Pain in left knee; E89.0 Postprocedural hypothyroidism; K21.9 Gastro-esophageal reflux disease without esophagitis; T78.40XA Allergy, unspecified, initial encounter; Z13.89 Encounter for screening for other disorder; R06.09 Other forms of dyspnea; I73.9 Peripheral vascular disease, unspecified; G45.9 Transient cerebral ischemic attack, unspecified; M54.50 Low back pain, unspecified; Z99.89 Dependence on other enabling machines and devices; I95.9 Hypotension, unspecified
CPT/HCPCS: 36415; 80053; 80061; 81003; 82306; 84439; 84443; 85025; 85652

== ENCOUNTER → 2025-01-22 12:50 | Outpatient (REF) | payer MEDICARE, OTHER, SELFPAY ==
[2025-01-22 18:46] LABS: Rubella Positive
== END ==
LOC: REG 12:50
PROVIDERS: ATTENDING PHYSICIAN Nurse Practitioner Adult Health; FAMILY PHYSICIAN Internal Medicine Geriatric Medicine
DX: Z85.6 Personal history of leukemia (principal); D50.9 Iron deficiency anemia, unspecified; R94.6 Abnormal results of thyroid function studies
CPT/HCPCS: 36415; 86735; 86762; 86765

== ENCOUNTER → 2025-02-08 10:54 | Outpatient (REF) | payer MEDICARE, OTHER, SELFPAY ==
[2025-02-08 11:45] LABS: % Basophils 0.7 % (0-2); % Eosinophils 6.1 % (0-6); % Immature Granulocytes 0.2 % (0-0.5); % Lymphocytes 22.3 % (20.5-51.1); % Monocytes 8.5 % (1.7-9.3); % Neutrophils 62.2 % (42.2-75.2); Absolute Eosinophils 0.3 10^3/uL (0-0.7); Absolute Monocytes 0.4 10^3/uL (0.1-0.6); Absolute Neutrophils 2.9 10^3/uL (1.4-6.5); Hemoglobin 12.2 g/dL (12.0-16.0); Mean Corpuscular Hgb 32.3 pg (27.0-31.0); Mean Corpuscular Volume 97.9 fL (81.0-99.0); Mean Platelet Volume 8.9 fL (7.4-10.4); Nucleated Red Blood Cells % 0 %; Platelet Count 176 10^3/uL (130-400); Red Blood Cell Count 3.78 10^6/uL (4.20-5.40); Red Cell Dist. Width 14.4 % (11.5-14.5); White Blood Cell Count 4.6 10^3/uL (4.8-10.8)
[2025-02-08 12:06] LABS: Iron 71 ug/dl (37-170)
[2025-02-08 12:15] LABS: Percent Saturation 20 % (20-50); Total Iron Binding Capacity 340 ug/dl (265-497)
[2025-02-08 12:41] LABS: Ferritin 19.7 ng/ml (11.1-264.0)
== END ==
LOC: REG 10:54
PROVIDERS: ATTENDING PHYSICIAN Internal Medicine Hematology & Oncology; FAMILY PHYSICIAN Internal Medicine Geriatric Medicine
DX: Z85.6 Personal history of leukemia (principal); D50.9 Iron deficiency anemia, unspecified; R94.6 Abnormal results of thyroid function studies
CPT/HCPCS: 36415; 82728; 83540; 83550; 85025

== ENCOUNTER 2025-05-06 20:13 | Emergency (ER) | payer MEDICARE, OTHER, SELFPAY ==
[2025-05-06 20:27] VITALS: BP 144/65
[2025-05-06 20:56] LABS: % Basophils 0.4 % (0-2); % Eosinophils 3.3 % (0-6); % Immature Granulocytes 0.2 % (0-0.5); % Lymphocytes 16.3 % (20.5-51.1); % Monocytes 7.8 % (1.7-9.3); Absolute Eosinophils 0.2 10^3/uL (0-0.7); Absolute Lymphocytes 0.9 10^3/uL (1.2-3.4); Absolute Monocytes 0.4 10^3/uL (0.1-0.6); Absolute Neutrophils 3.8 10^3/uL (1.4-6.5); Hematocrit 40.6 % (37.0-47.0); Hemoglobin 13.1 g/dL (12.0-16.0); Mean Corp Hgb Conc. 32.3 g/dL (33.0-37.0); Mean Corpuscular Hgb 30.5 pg (27.0-31.0); Mean Corpuscular Volume 94.4 fL (81.0-99.0); Mean Platelet Volume 9.1 fL (7.4-10.4); Nucleated Red Blood Cells % 0 %; Platelet Count 163 10^3/uL (130-400); Red Cell Dist. Width 13.4 % (11.5-14.5); White Blood Cell Count 5.2 10^3/uL (4.8-10.8)
[2025-05-06 21:17] LABS: Troponin I < 0.012 ng/ml
[2025-05-06 21:41] LABS: ALT (SGPT) 16 U/L (0-35); AST (SGOT) 25 U/L (14-36); Albumin 4.2 g/dl (3.5-5.0); Alkaline Phosphatase 72 U/L (38-126); Blood Urea Nitrogen 17 mg/dl (7-17); Calcium 9.1 mg/dl (8.4-10.2); Carbon Dioxide 24 mmol/L (22-30); Chloride 107 mmol/L (98-107); Glucose 95 mg/dl (70-99); Potassium 3.9 mmol/L (3.5-5.1); Sodium 139 mmol/L (135-145); Total Bilirubin 0.5 mg/dl (0.2-1.3); Total Protein 6.3 g/dl (6.3-8.2); eGFR > 60.00
[2025-05-06 23:27] VITALS: BP 125/67
--- NOTE | 2025-05-06 23:37 | ED.GENMED ---
History of Present Illness
General
Chief Complaint: Breast Problem
Source: patient
Exam Limitations: none
Time Seen by Provider: 05/06/25 23:23
Nursing documentation reviewed up to this point in time: agreed with
History of Present Illness
History of Present Illness:
Note:
CHIEF COMPLAINT(S)
Chest pain, lightheadedness
HISTORY OF PRESENT ILLNESS
The patient is a 74-year-old female with a pmh of hlp, hypothyroidism, bppv, presenting with chest pain, onset today, described as discomfort across the top of the breasts and tender on palpation. Concurrently, she experienced tenderness on the
left side of her back, lightheadedness, and vertigo. The chest pain lasted for about half an hour and has since resolved, but the lightheadedness persists intermittently. She does report that she does get lightheaded from time to time during the
past few months. The patient reports a history of vertigo for which she occasionally takes meclizine and she states that she started to develop vertigo while sitting here in the emergency department that has since resolved. She has seen a doctor for
this. She denies any recent nausea or vomiting. She experienced bilateral ankle swelling earlier today which seemed to significantly improve with elevation. She also had some episodes of chills earlier today. The swelling had appeared around the
same time as her chest discomfort. Although she does not describe feeling short of breath, she reports shallow breathing. There is no recent history of long-distance travel. Her symptoms began while she was at rest, and she was not engaged in any
specific physical activity. Chest pain was not similar to any previous incidents. Patient reports she has a heart murmur and follows with Dr. HUGO Ortiz annually. She denies any abdominal pain, nausea, vomiting
EXTERNAL RECORDS REVIEWED
Reviewed ER physician documentation from 11/04/2024, patient was seen for similar symptoms except on the left side, she had unremarkable workup and was discharged
CHRONIC MEDICAL CONDITIONS SIGNIFICANTLY AFFECTING CARE
Chronic conditions affecting care: History of vertigo.
Patient states that she has been seen by multiple doctors for this issue and has seen PT as well.
SOCIAL HISTORY
The patient lives in an apartment complex.
REVIEW OF SYSTEMS
See HPI
PHYSICAL EXAM
Nursing notes reviewed and vital signs reviewed.
General: Patient is well appearing and in no acute distress; non-toxic
Skin: Warm and dry, no rashes or lesions
Head: Normocephalic, atraumatic
Eyes: Sclera non-icteric. EOMs intact.
Cardiac: Regular rate and rhythm, no murmurs.
Peripheral Vascular: Mild pedal edema bilaterally, 2+ dp pulses bilaterally
Pulm: Normal respiratory effort, no wheezes, rales, or rhonchi
Abdomen: No abdominal tenderness to palpation
Musculoskeletal: No tenderness to palpation of the external chest wall
Neuro: CN II-XII intact, no focal neurologic deficits.
Psychiatric: Appropriate mood and affect.
PLAN
- cbc, cmp, troponin, d- dimer, ecg, pro-bnp
- CXR
DIFFERENTIAL DIAGNOSIS
The Differential Diagnosis includes, in no particular order and is not limited to:
- Angina pectoris
- Costochondritis
- Gastroesophageal reflux disease (GERD)
- Pulmonary embolism
- Aortic dissection
- Musculoskeletal pain
- Heart failure
- Arrhythmia
- Panic attack
- Pneumonia or pleuritis
CHART REVIEW
Reviewed previous ER physician documentation dated 10-26-21 for left-sided breast pain; similar workup done and she was discharged to follow up with her it teacher. Patient presented with lightheadedness and vertigo on 10-29-23 MRI negative for
acute stroke or trauma she was admitted to the hospital she was found to be hyponatremic.
MDM/DISPOSITION
The patient is a 74-year-old female presenting to the emergency department with chest pain, intermittent lightheadedness, and ankle swelling. She denies experiencing shortness of breath or syncopal episodes. Most symptoms have resolved except for
the ankle swelling which did greatly improve with elevation. On my physical exam, she is well appearing, in no acute distress. Her troponin is undetectable x2, her d-dimer is normal, her CXR shows no evidence of pneumothorax, pneumonia, widened
mediastinum or any acute disease. Patient has been doing a lot of physical therapy recently for balance issues and this involves weight lifting. Symptoms could represent a chest wall strain vs costochondritis. Her initial ECG showed normal sinus
rhythm; her subsequent echocardiagram showed a mobitz I block however when her ecg was repeated again, there appeared to be a first degree av block. Reviewed ECGs with ED attending. Considering patient is asymptomatic currently, is feeling well, has
no exertional lightheadedness and has had no syncopal episodes, patient is stable for discharge. Patient did have some lightheadedness earlier today but she said she has had this on and off for months. Stressed importance of following up with
Angel, patient's it teacher, considering the ECG abnormality. Patient reports that she will call the office this week.
Past History
Past History
ED Past Medical History: Hypercholesterolemia, Hypothyroidism (Thyroidectomy) and Other (Bone marrow transplant for myelodysplasia in 12/2019, Migraine, Rheumatic fever, )
ED Past Surgical History: Other (Thyroidectomy, Hernia repair, MOH's, Eye lid lift)
Social History
Tobacco: Former smoker
Alcohol: None
Personal: Single
Living: alone ([place])
Review of Systems
Review of Systems
All Other Systems: ROS reviewed and negative except as documented in HPI and ROS
Phy Exam
Physical Exam
Physical Exam:
see hpi
Course
Orders/Labs/Results
Orders:
Orders
05/06/25 20:30
Electrocardiogram (*1) Urgent
Reason for Study: Chest Pain
EKG- Treatment ONCE
05/06/25 20:44
Complete Blood Count/With Diff Urgent
Comprehensive Metabolic Panel Urgent
Troponin I Urgent
05/06/25 23:25
EKG [Electrocardiogram (*1)] Urgent
Reason for Study: Chest Pain
EKG- Treatment ONCE
05/06/25 23:35
D-Dimer Urgent
NT-proBNP Urgent
Troponin I Urgent
05/07/25 00:00
CR Chest - 2 Views Urgent
Reason For Exam: right sided chest pain
05/07/25 00:18
Electrocardiogram (*1) Urgent
Reason for Study: Chest Pain
EKG- Treatment ONCE
Abnormal Lab Results
05/06/25
20:44
MCHC 32.3 L g/dL
(33.0-37.0)
Absolute Lymphs (auto) 0.9 L 10^3/uL
(1.2-3.4)
Lymphocytes % 16.3 L %
(20.5-51.1)
05/06/25 20:44
05/06/25 20:44
Vital Signs
Initial and Last Documented VS:
Initial Vital Signs
Temp Pulse Resp BP Pulse Ox
97.8 F 77 18 144/65 99
05/06/25 20:27 05/06/25 20:27 05/06/25 20:27 05/06/25 20:27 05/06/25 20:27
Last Documented Vital Signs
Temp Pulse Resp BP Pulse Ox
97.8 F 85 20 139/62 98
05/06/25 20:27 05/07/25 01:00 05/07/25 01:00 05/07/25 01:00 05/07/25 01:00
*Pulse Oximetry
SaO2: 98
Oxygen Mode of Delivery: Room air
*Critical Care Note
Total Time (30-74mins, 75-104mins- exclusive of procedures): Not Applicable
ED Attending Note
-
Portions of this chart may have been created with voice recognition software.� Occasional wrong word or��sound alike� substitutions may have occurred due to the inherent limitations of voice recognition software.
Discharge Plan
Departure
Patient Disposition: Home (Routine Discharge)
Date of Disposition: 05/07/25
Time of Disposition: 01:06
Patient with high blood pressure during this ER visit?: Yes
Condition: Good
Discharge Problem:
Chest pain, Episodic lightheadedness
Instructions: Dizziness in adults - ED discharge instructions, BLOOD PRESSURE
Prescriptions:
No Action
cyanocobalamin (vitamin B-12) 1,000 MCG tablet
500 mcg PO DAILY
sulfamethoxazole-trimethoprim [Bactrim DS] 800-160 mg Tablet
1 tab PO MOWEFR
magnesium gluconate 30 mg (550 mg) Tablet
133 mg PO DAILY
montelukast 10 MG tablet
10 mg PO DAILY
fluticasone propionate 1 SPRAY spray,suspension
2 spray intranasal DAILYPRN PRN (Reason: ALLERGIES)
senna 8.6 MG capsule
8.6 mg PO BID
cholecalciferol (vitamin D3) [Vitamin D3] 25 mcg (1,000 unit) Tablet
25 mcg PO BID
PreserVision AREDS-2 1 EACH capsule
1 ea PO BID
Milk Digestant
2 tab PO DAILY
levothyroxine [Synthroid] 175 mcg Tablet
150 mcg PO MOTUWETHFRSA
acetaminophen [Tylenol] 325 mg Tablet
650 mg PO Q4HPRN PRN (Reason: MILD PAIN)
simethicone [Gas-X Extra Strength] 125 mg Capsule
250 mg PO BID
fexofenadine 180 mg Tablet
180 mg PO DAILY
lorazepam 0.5 mg Tablet
0.25 mg PO DAILY
karthikeyan extract 250 mg Capsule
100 mg PO DAILY
calcium carbonate-vitamin D3 [Calcium 600 + D(3)] 600 mg-10 mcg (400 unit) Tablet
2 tab PO DAILY
trazodone 50 mg Tablet
50 mg PO DAILY
famotidine 40 mg Tablet
40 mg PO BID
prednisone 20 mg Tablet
60 mg PO DAILY
ondansetron 4 mg Tablet,Disintegrating
4 mg PO Q6H PRN (Reason: nausea, vomiting)
estradiol 1 mg/gram (0.1 %) Gel In Packet
1 packet TRANSDERMAL WEEKLY
meclizine 25 mg tablet
12.5 mg PO TIDPRN PRN (Reason: dizziness)
Referrals:
Brian Ortiz MD [Active, Cardiology] - Call in 1-3 days for appt
UNKNOWN - PT DOES,NOT KNOW [Family Provider]
Activity Restrictions/Additional Instructions:
Please call Dr. Ortiz's office for a follow up appointment.
PLEASE RETURN TO THE EMERGENCY DEPARTMENT SHOULD YOU DEVELOP RETURN OF YOUR LIGHTHEADEDNESS, FAINTING SPELL, PERSISTENT DIZZINESS, INTRACTABLE NAUSEA OR VOMITING, CHEST PAIN, SHORTNESS OF BREATH, OR ANY OTHER SIGNS OR SYMPTOMS WORRISOME TO YOU.
Interventions
Interventions:
*Risk Screen - Suicide Last Done: 05/06/25 20:27
*General Assessment Last Done: 05/06/25 20:27
*Neglect/Abuse Screening Last Done: 05/06/25 20:27
*ED- Fall Risk Assessment Last Done: 05/06/25 23:21
*ED COVID-19 Vaccine History Last Done: 05/06/25 23:21
*Nursing Disposition Last Done: 05/07/25 01:14
ED-Skin Assessment Last Done: 05/06/25 23:21
Discharge Date and Time
Discharge Date/Time: 05/07/25 01:17
Print Language: PASHTO
[2025-05-07 00:08] LABS: D-Dimer 0.43 ug/mlFEU (0.00-0.50)
[2025-05-07 00:11] VITALS: BP 146/61
[2025-05-07 00:13] LABS: NT-proBNP 218 pg/ml; Troponin I < 0.012 ng/ml
[2025-05-07 01:00] VITALS: BP 139/62
--- NOTE | 2025-05-07 14:40 | W.PN.UPDATE ---
Update Note
Progress Note Update
74 yo female went to the ER last night for chest pain. She had a CXR done and there was a discrepancy noted that was not mentioned on the preliminary read.' There is a 1.4 cm faint nodule in the RUL. Non emergent CT chest is recommended.' I spoke
with patient's PCP office Dr. Ana Maria Sanchez and advised them of the recommendation. They will reach out to patient and follow up
== END 2025-05-07 01:17 | disposition home or self-care (01) ==
LOC: EMR 20:13
PROVIDERS: Emergency Medicine; Physician Assistant; EMERGENCY PHYSICIAN Student in an Organized Health Care Education/Training Program
DX: R07.9 Chest pain, unspecified (principal); R42 Dizziness and giddiness; E03.9 Hypothyroidism, unspecified; E78.00 Pure hypercholesterolemia, unspecified; Z87.891 Personal history of nicotine dependence; Z94.81 Bone marrow transplant status
CPT/HCPCS: 99285; 71046; 80053; 83880; 84484; 85025; 85379; 93005

== ENCOUNTER → 2025-05-11 11:40 | Outpatient (REF) | payer MEDICARE, OTHER, SELFPAY ==
[2025-05-11 12:38] LABS: % Basophils 0.7 % (0-2); % Eosinophils 2.9 % (0-6); % Immature Granulocytes 0.3 % (0-0.5); % Lymphocytes 22.1 % (20.5-51.1); % Monocytes 7.2 % (1.7-9.3); % Neutrophils 66.8 % (42.2-75.2); Absolute Eosinophils 0.2 10^3/uL (0-0.7); Absolute Lymphocytes 1.4 10^3/uL (1.2-3.4); Absolute Monocytes 0.4 10^3/uL (0.1-0.6); Absolute Neutrophils 4.1 10^3/uL (1.4-6.5); Hematocrit 39.9 % (37.0-47.0); Hemoglobin 13.1 g/dL (12.0-16.0); Mean Corp Hgb Conc. 32.8 g/dL (33.0-37.0); Mean Corpuscular Hgb 30.8 pg (27.0-31.0); Mean Corpuscular Volume 93.7 fL (81.0-99.0); Nucleated Red Blood Cells % 0 %; Platelet Count 172 10^3/uL (130-400); Red Blood Cell Count 4.26 10^6/uL (4.20-5.40); Red Cell Dist. Width 13.6 % (11.5-14.5); White Blood Cell Count 6.1 10^3/uL (4.8-10.8)
[2025-05-11 13:02] LABS: Iron 79 ug/dl (37-170)
[2025-05-11 13:12] LABS: Percent Saturation 23 % (20-50); Total Iron Binding Capacity 337 ug/dl (265-497)
[2025-05-11 13:40] LABS: Ferritin 20.2 ng/ml (11.1-264.0)
[2025-05-12 16:01] LABS: CD4 % of Cells Analyzed 21 % (35-68); CD4 Absolute Count 321 cells/uL (490-1600)
== END ==
LOC: REG 11:40
PROVIDERS: ATTENDING PHYSICIAN Internal Medicine Hematology & Oncology; FAMILY PHYSICIAN Internal Medicine Geriatric Medicine
DX: R94.6 Abnormal results of thyroid function studies (principal); Z85.6 Personal history of leukemia; D50.9 Iron deficiency anemia, unspecified
CPT/HCPCS: 36415; 82728; 83540; 83550; 85025; 86361

== ENCOUNTER → 2025-05-15 09:28 | Outpatient (REF) | payer MEDICARE, OTHER, SELFPAY | LOC: HWWDC 09:28 | PROVIDERS: ATTENDING PHYSICIAN Obstetrics & Gynecology Gynecology; FAMILY PHYSICIAN Internal Medicine Geriatric Medicine | DX: Z12.31 Encounter for screening mammogram for malignant neoplasm of breast (principal) | CPT/HCPCS: 77063; 77067 ==

== ENCOUNTER → 2025-05-16 11:30 | Outpatient (REF) | payer MEDICARE, OTHER, SELFPAY ==
[2025-05-16 12:05] LABS: Urine Character Clear (Clear)
[2025-05-16 12:15] LABS: ALT (SGPT) 20 U/L (0-35); AST (SGOT) 23 U/L (14-36); Albumin 4.2 g/dl (3.5-5.0); Alkaline Phosphatase 72 U/L (38-126); Blood Urea Nitrogen 19 mg/dl (7-17); Calcium 9.5 mg/dl (8.4-10.2); Carbon Dioxide 28 mmol/L (22-30); Chloride 107 mmol/L (98-107); Glucose 88 mg/dl (70-99); HDL Cholesterol 44 mg/dl; LDL Cholesterol, Calculated 116 mg/dl; Potassium 3.9 mmol/L (3.5-5.1); Sodium 139 mmol/L (135-145); Total Protein 6.6 g/dl (6.3-8.2); Very Low Density Lipoprotein 25 mg/dl (0-30); eGFR > 60.00
[2025-05-16 12:18] LABS: Urine Red Blood Cell 0-2 /HPF (0-2); Urine Squamous Cell >30 /LPF (Few)
[2025-05-16 12:31] LABS: Vitamin D, 25-OH*** 55.4 ng/mL (30-80)
== END ==
LOC: OLABPV 11:30
PROVIDERS: ATTENDING PHYSICIAN Internal Medicine Geriatric Medicine
DX: E78.2 Mixed hyperlipidemia (principal); I10 Essential (primary) hypertension; E55.9 Vitamin D deficiency, unspecified; M25.562 Pain in left knee; G62.9 Polyneuropathy, unspecified; K21.9 Gastro-esophageal reflux disease without esophagitis; R41.89 Other symptoms and signs involving cognitive functions and awareness; E03.9 Hypothyroidism, unspecified; M17.0 Bilateral primary osteoarthritis of knee; R41.3 Other amnesia; M25.551 Pain in right hip; Z13.89 Encounter for screening for other disorder; M25.552 Pain in left hip; M25.512 Pain in left shoulder
CPT/HCPCS: 36415; 80053; 80061; 81003; 81015; 82306; 86041

== ENCOUNTER → 2025-05-22 11:51 | Outpatient (REF) | payer MEDICARE, OTHER, SELFPAY | LOC: RAD 11:51 | PROVIDERS: ATTENDING PHYSICIAN Internal Medicine Geriatric Medicine | DX: R91.1 Solitary pulmonary nodule (principal) | CPT/HCPCS: 71260; Q9967 ==

== ENCOUNTER → 2025-05-25 12:35 | Outpatient (REF) | payer MEDICARE, OTHER, SELFPAY | LOC: EMG 12:35 | PROVIDERS: ATTENDING PHYSICIAN Nurse Practitioner Adult Health; FAMILY PHYSICIAN Internal Medicine Geriatric Medicine | DX: R27.8 Other lack of coordination (principal); R42 Dizziness and giddiness; R47.02 Dysphasia; R20.0 Anesthesia of skin | CPT/HCPCS: 95886; 95911 ==

== ENCOUNTER → 2025-06-20 11:58 | Outpatient (REF) | payer MEDICARE, OTHER, SELFPAY ==
[2025-06-20 16:40] LABS: Urine Character Clear (Clear)
[2025-06-20 17:04] LABS: Urine Red Blood Cell 0-2 /HPF (0-2); Urine White Cell 0-2 /HPF (0-5)
== END ==
LOC: OLABPV 11:58
PROVIDERS: ATTENDING PHYSICIAN Nurse Practitioner
DX: N39.0 Urinary tract infection, site not specified (principal)
CPT/HCPCS: 81003; 81015; 87086

== ENCOUNTER → 2025-07-11 08:35 | Outpatient (REF) | payer MEDICARE, OTHER, SELFPAY | LOC: PAVMRI 08:35 | PROVIDERS: ATTENDING PHYSICIAN Orthopaedic Surgery; FAMILY PHYSICIAN Internal Medicine Geriatric Medicine | DX: M25.512 Pain in left shoulder (principal) | CPT/HCPCS: 73221 ==

== ENCOUNTER → 2025-08-06 10:41 | Outpatient (REF) | payer MEDICARE, OTHER, SELFPAY | LOC: HWRAD 10:41 | PROVIDERS: ATTENDING PHYSICIAN Internal Medicine Rheumatology; FAMILY PHYSICIAN Internal Medicine Geriatric Medicine; REFERRING PHYSICIAN Orthopaedic Surgery | DX: M81.0 Age-related osteoporosis without current pathological fracture (principal) | CPT/HCPCS: 77080 ==

== ENCOUNTER → 2025-08-13 10:27 | Outpatient (REF) | payer MEDICARE, OTHER, SELFPAY ==
[2025-08-13 10:56] LABS: Hematocrit 38.4 % (37.0-47.0); Hemoglobin 12.4 g/dL (12.0-16.0); Mean Corp Hgb Conc. 32.3 g/dL (33.0-37.0); Mean Corpuscular Volume 94.8 fL (81.0-99.0); Platelet Count 194 10^3/uL (130-400); Red Cell Dist. Width 14.0 % (11.5-14.5)
[2025-08-13 11:35] LABS: Iron 33 ug/dl (37-170)
[2025-08-13 11:45] LABS: Total Iron Binding Capacity 278 ug/dl (265-497)
[2025-08-13 12:10] LABS: Ferritin 58.3 ng/ml (11.1-264.0)
== END ==
LOC: OIDL 10:27
PROVIDERS: ATTENDING PHYSICIAN Internal Medicine Hematology & Oncology
DX: Z85.6 Personal history of leukemia (principal); D50.9 Iron deficiency anemia, unspecified; R94.6 Abnormal results of thyroid function studies
CPT/HCPCS: 82728; 83540; 83550; 85025

== ENCOUNTER → 2025-08-17 11:09 | Outpatient (REF) | payer MEDICARE, OTHER, SELFPAY ==
[2025-08-17 11:39] LABS: Hematocrit 32.7 % (37.0-47.0); Hemoglobin 11.0 g/dL (12.0-16.0); Mean Corp Hgb Conc. 33.6 g/dL (33.0-37.0); Mean Corpuscular Volume 91.3 fL (81.0-99.0); Nucleated Red Blood Cells % 0 %; Platelet Count 211 10^3/uL (130-400); Red Cell Dist. Width 14.2 % (11.5-14.5)
[2025-08-17 11:52] LABS: ALT (SGPT) 49 U/L (0-35); AST (SGOT) 42 U/L (14-36); Albumin 3.4 g/dl (3.5-5.0); Alkaline Phosphatase 187 U/L (38-126); Blood Urea Nitrogen 15 mg/dl (7-17); Calcium 8.3 mg/dl (8.4-10.2); Carbon Dioxide 26 mmol/L (22-30); Chloride 103 mmol/L (98-107); Glucose 108 mg/dl (70-99); Potassium 4.1 mmol/L (3.5-5.1); Sodium 134 mmol/L (135-145); Total Protein 5.8 g/dl (6.3-8.2); eGFR > 60.00
== END ==
LOC: OLABPV 11:09
PROVIDERS: ATTENDING PHYSICIAN Nurse Practitioner Family
DX: R06.02 Shortness of breath (principal); R53.83 Other fatigue; J44.9 Chronic obstructive pulmonary disease, unspecified
CPT/HCPCS: 36415; 80053; 84443; 85025

== ENCOUNTER → 2025-08-23 13:19 | Outpatient (REF) | payer MEDICARE, OTHER, SELFPAY | LOC: REG 13:19 | PROVIDERS: ATTENDING PHYSICIAN Nurse Practitioner Family; FAMILY PHYSICIAN Internal Medicine Geriatric Medicine | DX: R05.3 Chronic cough (principal) | CPT/HCPCS: 71046 ==

== ENCOUNTER → 2025-08-24 12:05 | Outpatient (REF) | payer MEDICARE, OTHER, SELFPAY ==
[2025-08-24 12:34] LABS: Hematocrit 33.6 % (37.0-47.0); Hemoglobin 11.4 g/dL (12.0-16.0); Mean Corp Hgb Conc. 33.9 g/dL (33.0-37.0); Mean Corpuscular Volume 92.1 fL (81.0-99.0); Nucleated Red Blood Cells % 0 %; Platelet Count 280 10^3/uL (130-400); Red Cell Dist. Width 14.5 % (11.5-14.5)
[2025-08-24 12:51] LABS: ALT (SGPT) 50 U/L (0-35); AST (SGOT) 37 U/L (14-36); Albumin 3.7 g/dl (3.5-5.0); Alkaline Phosphatase 176 U/L (38-126); Blood Urea Nitrogen 13 mg/dl (7-17); Calcium 9.2 mg/dl (8.4-10.2); Carbon Dioxide 29 mmol/L (22-30); Chloride 98 mmol/L (98-107); GGTP 85 U/L (12-43); Glucose 111 mg/dl (70-99); Iron 51 ug/dl (37-170); Potassium 4.6 mmol/L (3.5-5.1); Sodium 132 mmol/L (135-145); Total Protein 6.2 g/dl (6.3-8.2); eGFR > 60.00
[2025-08-24 13:01] LABS: Total Iron Binding Capacity 246 ug/dl (265-497)
[2025-08-24 13:08] LABS: Vitamin D, 25-OH*** 53.4 ng/mL (30-80)
[2025-08-24 13:26] LABS: Ferritin 83.1 ng/ml (11.1-264.0)
== END ==
LOC: OLABPV 12:05
PROVIDERS: ATTENDING PHYSICIAN Nurse Practitioner Family
DX: E83.51 Hypocalcemia (principal); R74.8 Abnormal levels of other serum enzymes; R79.89 Other specified abnormal findings of blood chemistry; R05.3 Chronic cough; D64.9 Anemia, unspecified
CPT/HCPCS: 36415; 80053; 82306; 82728; 82977; 83540; 83550; 83970; 85025

== ENCOUNTER → 2025-08-31 11:17 | Outpatient (REF) | payer MEDICARE, OTHER, SELFPAY ==
[2025-08-31 13:19] LABS: ALT (SGPT) 25 U/L (0-35); AST (SGOT) 24 U/L (14-36); Alkaline Phosphatase 112 U/L (38-126); Blood Urea Nitrogen 12 mg/dl (7-17); Calcium 9.4 mg/dl (8.4-10.2); Carbon Dioxide 30 mmol/L (22-30); Chloride 104 mmol/L (98-107); Glucose 90 mg/dl (70-99); Potassium 4.4 mmol/L (3.5-5.1); Sodium 138 mmol/L (135-145); Total Protein 6.3 g/dl (6.3-8.2); eGFR > 60.00
[2025-08-31 14:28] LABS: Albumin 3.7 g/dl (3.5-5.0)
== END ==
LOC: OLABPV 11:17
PROVIDERS: ATTENDING PHYSICIAN Internal Medicine Geriatric Medicine
DX: C92.01 Acute myeloblastic leukemia, in remission (principal); Z94.81 Bone marrow transplant status; Z99.89 Dependence on other enabling machines and devices; E78.2 Mixed hyperlipidemia; I10 Essential (primary) hypertension; E55.9 Vitamin D deficiency, unspecified; M25.562 Pain in left knee; G62.9 Polyneuropathy, unspecified; K21.9 Gastro-esophageal reflux disease without esophagitis; R41.89 Other symptoms and signs involving cognitive functions and awareness; E03.9 Hypothyroidism, unspecified; M17.0 Bilateral primary osteoarthritis of knee; R41.3 Other amnesia; J44.9 Chronic obstructive pulmonary disease, unspecified; M25.512 Pain in left shoulder; M25.552 Pain in left hip
CPT/HCPCS: 36415; 80053; 83880

== ENCOUNTER → 2025-09-01 09:53 | Outpatient (REF) | payer MEDICARE, OTHER, SELFPAY | LOC: RCS 09:53 | PROVIDERS: ATTENDING PHYSICIAN Internal Medicine Geriatric Medicine | DX: R06.02 Shortness of breath (principal); C92.01 Acute myeloblastic leukemia, in remission; Z94.81 Bone marrow transplant status; Z99.89 Dependence on other enabling machines and devices; E78.2 Mixed hyperlipidemia; R42 Dizziness and giddiness; I10 Essential (primary) hypertension; E55.9 Vitamin D deficiency, unspecified; M25.562 Pain in left knee; G62.9 Polyneuropathy, unspecified; K21.9 Gastro-esophageal reflux disease without esophagitis; R41.89 Other symptoms and signs involving cognitive functions and awareness; E03.9 Hypothyroidism, unspecified; Z13.89 Encounter for screening for other disorder; M17.0 Bilateral primary osteoarthritis of knee; R41.3 Other amnesia; M25.551 Pain in right hip; M25.552 Pain in left hip; M25.512 Pain in left shoulder; J44.9 Chronic obstructive pulmonary disease, unspecified; R68.84 Jaw pain; R51.9 Headache, unspecified | CPT/HCPCS: 93225; 93226 ==

== ENCOUNTER → 2025-09-07 09:18 | Outpatient (REF) | payer MEDICARE, OTHER, SELFPAY | LOC: HWRAD 09:18 | PROVIDERS: ATTENDING PHYSICIAN Nurse Practitioner Family; FAMILY PHYSICIAN Internal Medicine Geriatric Medicine | DX: R79.89 Other specified abnormal findings of blood chemistry (principal) | CPT/HCPCS: 76700 ==

== ENCOUNTER → 2025-10-19 10:54 | Outpatient (REF) | payer MEDICARE, OTHER, SELFPAY ==
[2025-10-19 11:58] LABS: Blood Urea Nitrogen 16 mg/dl (7-17); Calcium 8.9 mg/dl (8.4-10.2); Carbon Dioxide 31 mmol/L (22-30); Chloride 102 mmol/L (98-107); Glucose 91 mg/dl (70-99); Potassium 3.8 mmol/L (3.5-5.1); Sodium 137 mmol/L (135-145); eGFR > 60.00
== END ==
LOC: OLABPV 10:54
PROVIDERS: ATTENDING PHYSICIAN Internal Medicine Geriatric Medicine
DX: E87.1 Hypo-osmolality and hyponatremia (principal); E78.2 Mixed hyperlipidemia
CPT/HCPCS: 36415; 80048; 83930; 83935; 84300